=== PATIENT | male | born 2000 | race African-American/Black ===

== ENCOUNTER 2023-12-31 09:03 | Inpatient (IN) ==
--- NOTE | 2023-12-31 09:17 | Emergency Department Note ---
Impression & Plan Seizure-like activity, Syncope, COVID-19, Dehydration, Elevated CK, EVER (acute kidney injury) ED Provider Note NAME: KATALINA DOHERTY AGE: 23 SEX: M : 2000 ARRIVES VIA: Ambulance INFORMANT: Patient ED PROVIDER(S): Jose Hatch MD CHIEF COMPLAINT: Syncope, witness seizure-like activity. PLAN: Disposition: Admit MEDICAL DECISION MAKING: The patient is a pleasant 23-year-old gentleman, [employer] student who presents to the emergency department via EMS for evaluation of witnessed seizure-like episode where patient was noted to have lost consciousness in the [facility] parking lot falling hitting the right side of his face on the ground and had shaking which concerned bystanders for seizure-like activity. Upon EMS arrival the patient was awake and alert but confused and mildly somnolent. He denies any recent fevers, chills, GI or symptoms. He reported later that he did have mild nasal congestion for the pasto two days. 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 He otherwise denies taking medications regularly. He denies any alcohol consumption last night. He denies any marijuana use or drug use otherwise. He denies family history of sudden . On evaluation the patient is fatigued appearing but no acute distress, afebrile with heart rate in the 100s and blood pressure 130s/50s. He appears clinically dry. He appears mildly drowsy/somnolent but is spontaneously awake and alert. He answers questions appropriately. He has no focal logic deficits. He has mild contusion of the right periorbital region without edema or bony crepitus. EOMI. No nystamgus. PEARRL. EKG without overt acute ischemia. CXR negative for acute cardiopulmonary process per my personal preliminary review/interpretation. WBC 16K with mild left shift, H/H and platelets within normal limits. Chemistry with anion gap metabolic acidosis with anion gap of 27 and bicarbonate of 10 with creatinine 1.5 consistent with EVER. CPK was elevated at 1000. High- sensitivity troponin 8.8, within normal limits. TSH within normal limits. UA without evidence of infection. Urine drug screen was negative. Respiratory BioFire was positive for COVID-19 which upon further discussion with the patient he reports having mild sinus congestion over the past couple of days. Patient initially did express interest in outpatient follow-up and so blood work was repleted and the patient chemistry did show interval improvement with resolution of his anion gap and metabolic acidosis. Creatinine also improved to 1.17. However, the patient CPK continued to rise to 2100. The patient did report feeling improved however given his rising CPK in the setting of this presentation of syncope versus seizure in the setting of COVID-19 he does agree with plan for admission for further management. Case was discussed with ALISA Mckay PAC, and Dr. Hall [facility] hospitalist who will evaluate the patient for admission. Further management per admitting team. Triage Nursing notes reviewed and agree them. Prior/external medical records reviewed Vital Signs: reviewed Differential diagnosis: Vasovagal event, dehydration, infection, hypoglycemia, electrolyte abnormalities, cardiac sources, intracerebral event, pulmonary embolism, seizure, toxicologic, neurologic, as well as other pathologies. ER treatment provided: See below. Diagnostics interpreted by me: ECG: Sinus tachycardia, 105 bpm, no ectopy, no brugada, no overt ST elevation or depression, QTc 465, QRS 98. Cardiac Monitoring: An order for continuous cardiac monitoring was placed and demonstrated Sinus tachycardia, 105 bpm, no ectopy. Laboratory studies: See below Imaging studies: See below Consultation(s): Case was discussed with ALISA Mckay PAC, and Dr. Hall [facility] hospitalist who will evaluate the patient for admission. HPI: The patient is a pleasant 23-year-old gentleman, [employer] student who presents to the emergency department via EMS for evaluation of witnessed seizure-like episode where patient was noted to have lost consciousness in the [employer] parking lot falling hitting the right side of his face on the ground and had shaking which concerned bystanders for seizure-like activity. Upon EMS arrival the patient was awake and alert but confused and mildly somnolent. He denies any recent fevers, chills, GI or symptoms. He reported later that he did have mild nasal congestion for the pasto two days. 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 He otherwise denies taking medications regularly. He denies any alcohol consumption last night. He denies any marijuana use or drug use otherwise. He denies family history of sudden . ROS: See above HPI for pertinent positives & negatives. A total of 10 systems reviewed and were otherwise negative. VITALS:See Below PHYSICAL EXAMINATION: GENERAL: Awake, alert, fatigued-appearing, in no distress HENT: Normocephalic, Mild right periorbital contusion without edema. Oropharynx with dry mucous membranes and otherwise unremarkable. EYES: Normal conjunctiva. Sclera non-icteric. EOMI. No nystamgus. PEARRL. NECK: Supple. No nuchal rigidity. FROM. No JVD. RESPIRATORY: Clear to auscultation. CARDIAC: Regular rate, normal rhythm. Extremities warm and well perfused. Pulses equal. ABDOMEN: Soft, non-distended. No tenderness to palpation. No rebound or guarding. No masses. MUSCULOSKELETAL: Chest examination reveals no tenderness. The back is symmetrical on inspection without obvious abnormality. There is no CVA tenderness to palpation. No joint edema. LOWER EXTREMITIES: Calves are equal size bilaterally and non-tender. No edema. No discoloration. NEURO: No focal sensory or motor deficits noted. DTRs wnl. No clonus. 5/5 strength and SILT x 4 extremities. Cerebellar function intact including [id number], alternating palms, [id number]. SKIN: No rash or jaundice noted. Jose Hatch MD Past Med/Surg History Problem List (Updated 12/31/23 @ 21:27 by Jose Hatch MD) EVER (acute kidney injury) (Acute) Elevated CK (Acute) Dehydration (Acute) COVID-19 (Acute) Seizure-like activity (Acute) Syncope (Acute) Social History Smoking Status: Never smoker Hx Alcohol Use: No Hx Substance Use: No Preferred Language: Pashto Communication Ability: Effective Key Entry Operator Required: No Beliefs That Will Affect Care: None Current Living Situation Comment: Student at [employer], currently in apartment off campus Feels Safe at Home: Yes Allergies Allergies Allergy/AdvReac Type Severity Reaction Status Date / Time No Known Allergies Allergy Unverified 12/31/23 12:38 Home Meds Home Medications Medication Instructions Recorded Confirmed No Known Home Medications 12/31/23 12/31/23 Results & Data (ED) Vital Signs Vital Signs - 24 hr 12/31/23 09:08 12/31/23 09:15 12/31/23 09:16 Pulse Rate 102 H 74 101 H Pulse Rate [Right Brachial] Pulse Rhythm Regular Regular Pulse Rhythm [Right Brachial] Pulse Strength Normal Pulse Strength [Right Brachial] Respiratory Rate 20 18 Respiratory Effort / Characteristics Non-Labored Respiratory Depth Normal Respiratory Pattern Blood Pressure 131/53 L Blood Pressure [Right Arm] Blood Pressure Mean 79 Blood Pressure Mean [Right Arm] Blood Pressure Position Lying Blood Pressure Position [Right Arm] Pulse Oximetry 100 100 Oxygen Delivery Method Room Air Room Air Sepsis Recent Fever Within 48 Hours No Sepsis New/Unexplained Change in Mental Status No Sepsis Action Taken by Nursing No Action Required 12/31/23 09:46 12/31/23 09:46 12/31/23 11:55 Pulse Rate Pulse Rate [Right Brachial] 79 68 Pulse Rhythm Pulse Rhythm [Right Brachial] Regular Regular Pulse Strength Pulse Strength [Right Brachial] Normal Normal Respiratory Rate 18 16 Respiratory Effort / Characteristics Non-Labored Non-Labored Spontaneous Respiratory Depth Normal Normal Respiratory Pattern Regular Regular Blood Pressure Blood Pressure [Right Arm] 121/54 L 105/78 Blood Pressure Mean Blood Pressure Mean [Right Arm] 76 87 Blood Pressure Position Blood Pressure Position [Right Arm] Sitting Sitting Pulse Oximetry 100 99 Oxygen Delivery Method Room Air Room Air Room Air Sepsis Recent Fever Within 48 Hours Sepsis New/Unexplained Change in Mental Status Sepsis Action Taken by Nursing 12/31/23 13:05 Pulse Rate 62 Pulse Rate [Right Brachial] Pulse Rhythm Pulse Rhythm [Right Brachial] Pulse Strength Pulse Strength [Right Brachial] Respiratory Rate Respiratory Effort / Characteristics Respiratory Depth Respiratory Pattern Blood Pressure Blood Pressure [Right Arm] Blood Pressure Mean Blood Pressure Mean [Right Arm] Blood Pressure Position Blood Pressure Position [Right Arm] Pulse Oximetry Oxygen Delivery Method Sepsis Recent Fever Within 48 Hours Sepsis New/Unexplained Change in Mental Status Sepsis Action Taken by Nursing Laboratory Data Attestation: I reviewed the patient's lab results. 12/31/23 09:05 12/31/23 12:59 Lab Results 12/31/23 12/31/23 12/31/23 Range/Units 09:05 10:27 10:37 WBC 16.09 H (4.8-10.8) K/ul RBC 5.14 (4.70-6.10) M/uL Hgb 15.3 (14.0-18.0) g/dl Hct 48.6 (42.0-52.0) % MCV 94.6 (80.0-100.0) fL MCH 29.8 (25.0-34.0) pg MCHC 31.5 L (32.0-36.0) g/dL RDW Std Deviation 38.8 (36.4-46.3) fL RDW Coeff of Vinicius 11.1 L (11.5-14.5) % Plt Count 266 (130-400) K/uL MPV 10.1 (9.4-12.4) fL Immature Gran % (Auto) 2.8 % Neut % (Auto) 34.0 % Lymph % (Auto) 52.8 % Wilson % (Auto) 8.1 % Eos % (Auto) 1.7 % Baso % (Auto) 0.6 % Neut # (Auto) 5.47 (1.40-6.50) K/uL Lymph # (Auto) 8.50 H (1.20-3.40) K/uL Wilson # (Auto) 1.30 H (0.11-0.59) K/uL Eos # (Auto) 0.28 (0.00-0.50) K/uL Baso # (Auto) 0.09 (0.00-0.20) K/uL Immature Gran # (Auto) 0.45 H (0.01-0.20) K/uL PT 11.7 (9.0-12.0) Seconds INR 1.1 (0.9-1.1) Sodium 138 (136-145) mmol/L Potassium 3.4 L (3.5-5.1) mmol/L Chloride 101 (98-107) mmol/L Carbon Dioxide 10 L (21-32) mmol/L Anion Gap 27 H (3-11) BUN 20 (6-23) mg/dl Creatinine 1.50 H (0.6-1.4) mg/dl Est Cr Clr Drug Dosing 81.7 ml/min Est GFR ( Amer) 76.0 ml/min Est GFR (Non-Af Amer) 65.6 ml/min BUN/Creatinine Ratio 13.3 (10-20) Glucose 118 H (70-99(Fasting)) mg/dl Calcium 9.6 (8.6-10.3) mg/dl Magnesium 2.3 (1.7-2.4) mg/dl Total Bilirubin 0.6 (0.2-1.0) mg/dl AST 46 H (13-39) U/L ALT 30 (7-52) U/L Alkaline Phosphatase 128 H (34-104) U/L Total Creatine Kinase 1016 H (30-223) U/L Troponin I High Sens 8.8 (0-20) pg/ml Total Protein 8.3 (6.0-8.3) gm/dl Albumin 4.8 (3.4-5.0) gm/dl Globulin 3.5 (2.5-4.0) gm/dl Albumin/Globulin Ratio 1.4 (0.9-2) TSH 2.996 (0.300-4.500) uIu/ml Prolactin 37.80 ng/ml Urine Color Urine Appearance (Clear) Urine pH (4.5-7.5) Ur Specific Ralls (1.000-1.030) Urine Protein (Negative) Urine Glucose (UA) (Negative) Urine Ketones (Negative) Urine Blood (Negative) Urine Nitrite (Negative) Urine Bilirubin (Negative) Urine Urobilinogen (Negative) Ur Leukocyte Esterase (Negative) Urine WBC (Auto) (0-5) /hpf Urine RBC (Auto) (0-2) /hpf U Hyaline Cast (Auto) (0-2) /lpf U Epithel Cells (Auto) (0-2) /hpf Urine Bacteria (Auto) (None Seen) Uric Acid Crystals (None Prsent) Urine Opiates Screen (Neg) Ur Methadone, Qual (Neg) Urine Fentanyl Screen (Neg) Urine Barbiturates (Neg) Ur Phencyclidine (PCP) (Neg) U Amphetamin/Meth Scrn (Neg) MDMA (Ecstasy) Screen (Neg) U Benzodiazepines Scrn (Neg) Ur Cocaine Metabolite (Neg) U Marijuana (THC) Screen (Neg) Ethyl Alcohol mg/dL < 10.0 (<10.0) mg/dl Adenovirus (PCR) Not Detected (NotDetected) B. pertussis DNA (PCR) Not Detected (NotDetected) B.parapertussis DNA PCR Not Detected (NotDetected) C. pneumoniae DNA (PCR) Not Detected (NotDetected) Coronavirus OC43 (PCR) Not Detected (NotDetected) Coronavirus HKU1 (PCR) Not Detected (NotDetected) Coronavirus 229E (PCR) Not Detected (NotDetected) SARS-CoV-2 (PCR) DETECTED A (NotDetected) Coronavirus NL63 (PCR) Not Detected (NotDetected) Human Metapneumovir PCR Not Detected (NotDetected) Influenza Type A (PCR) Not Detected (NotDetected) Influenza Type B (PCR) Not Detected (NotDetected) M. pneumoniae (PCR) Not Detected (NotDetected) Parainfluenza 1 (PCR) Not Detected (NotDetected) Parainfluenza 2 (PCR) Not Detected (NotDetected) Parainfluenza 3 (PCR) Not Detected (NotDetected) Parainfluenza 4 (PCR) Not Detected (NotDetected) RSV (PCR) Not Detected (NotDetected) Entero/Rhino (PCR) Not Detected (NotDetected) 12/31/23 12/31/23 Range/Units 10:43 12:59 WBC (4.8-10.8) K/ul RBC (4.70-6.10) M/uL Hgb (14.0-18.0) g/dl Hct (42.0-52.0) % MCV (80.0-100.0) fL MCH (25.0-34.0) pg MCHC (32.0-36.0) g/dL RDW Std Deviation (36.4-46.3) fL RDW Coeff of Vinicius (11.5-14.5) % Plt Count (130-400) K/uL MPV (9.4-12.4) fL Immature Gran % (Auto) % Neut % (Auto) % Lymph % (Auto) % Wilson % (Auto) % Eos % (Auto) % Baso % (Auto) % Neut # (Auto) (1.40-6.50) K/uL Lymph # (Auto) (1.20-3.40) K/uL Wilson # (Auto) (0.11-0.59) K/uL Eos # (Auto) (0.00-0.50) K/uL Baso # (Auto) (0.00-0.20) K/uL Immature Gran # (Auto) (0.01-0.20) K/uL PT (9.0-12.0) Seconds INR (0.9-1.1) Sodium 137 (136-145) mmol/L Potassium 3.8 (3.5-5.1) mmol/L Chloride 105 (98-107) mmol/L Carbon Dioxide 26 (21-32) mmol/L Anion Gap 6 (3-11) BUN 16 (6-23) mg/dl Creatinine 1.17 D (0.6-1.4) mg/dl Est Cr Clr Drug Dosing 104.7 ml/min Est GFR ( Amer) 102.7 ml/min Est GFR (Non-Af Amer) 88.6 ml/min BUN/Creatinine Ratio 13.7 (10-20) Glucose 88 (70-99(Fasting)) mg/dl Calcium 8.8 (8.6-10.3) mg/dl Magnesium (1.7-2.4) mg/dl Total Bilirubin (0.2-1.0) mg/dl AST (13-39) U/L ALT (7-52) U/L Alkaline Phosphatase (34-104) U/L Total Creatine Kinase 2177 H (30-223) U/L Troponin I High Sens (0-20) pg/ml Total Protein (6.0-8.3) gm/dl Albumin (3.4-5.0) gm/dl Globulin (2.5-4.0) gm/dl Albumin/Globulin Ratio (0.9-2) TSH (0.300-4.500) uIu/ml Prolactin ng/ml Urine Color Yellow Urine Appearance Turbid A (Clear) Urine pH 5.5 (4.5-7.5) Ur Specific Ralls 1.019 (1.000-1.030) Urine Protein Negative (Negative) Urine Glucose (UA) Negative (Negative) Urine Ketones Negative (Negative) Urine Blood Negative (Negative) Urine Nitrite Negative (Negative) Urine Bilirubin Negative (Negative) Urine Urobilinogen Negative (Negative) Ur Leukocyte Esterase Negative (Negative) Urine WBC (Auto) 0-5 (0-5) /hpf Urine RBC (Auto) 0-2 (0-2) /hpf U Hyaline Cast (Auto) 0-2 (0-2) /lpf U Epithel Cells (Auto) 0-2 (0-2) /hpf Urine Bacteria (Auto) None Seen (None Seen) Uric Acid Crystals Present A (None Prsent) Urine Opiates Screen Neg (Neg) Ur Methadone, Qual Neg (Neg) Urine Fentanyl Screen Neg (Neg) Urine Barbiturates Neg (Neg) Ur Phencyclidine (PCP) Neg (Neg) U Amphetamin/Meth Scrn Neg (Neg) MDMA (Ecstasy) Screen Neg (Neg) U Benzodiazepines Scrn Neg (Neg) Ur Cocaine Metabolite Neg (Neg) U Marijuana (THC) Screen Neg (Neg) Ethyl Alcohol mg/dL (<10.0) mg/dl Adenovirus (PCR) (NotDetected) B. pertussis DNA (PCR) (NotDetected) B.parapertussis DNA PCR (NotDetected) C. pneumoniae DNA (PCR) (NotDetected) Coronavirus OC43 (PCR) (NotDetected) Coronavirus HKU1 (PCR) (NotDetected) Coronavirus 229E (PCR) (NotDetected) SARS-CoV-2 (PCR) (NotDetected) Coronavirus NL63 (PCR) (NotDetected) Human Metapneumovir PCR (NotDetected) Influenza Type A (PCR) (NotDetected) Influenza Type B (PCR) (NotDetected) M. pneumoniae (PCR) (NotDetected) Parainfluenza 1 (PCR) (NotDetected) Parainfluenza 2 (PCR) (NotDetected) Parainfluenza 3 (PCR) (NotDetected) Parainfluenza 4 (PCR) (NotDetected) RSV (PCR) (NotDetected) Entero/Rhino (PCR) (NotDetected) Administered Medications Lactated Ringer's (Lr) 1,000 mls @ 200 mls/hr IV .Q5H CLAUDIA Stop: 01/01/24 13:17 Last Admin: 12/31/23 15:06 Dose: 125 mls/hr Documented By: MIGUELITO Discontinued Medications Sodium Chloride (Nss) 2,000 mls @ 999 mls/hr IV .Q2H1M CLAUDIA Stop: 12/31/23 11:15 Last Infusion: 12/31/23 11:54 Dose: Infused Documented By: Admin: 12/31/23 10:00 Dose: 999 mls/hr Documented By: MIGUELITO Imaging Data Radiologist's Impression: Chest X-Ray 12/31/23 09:15 XR chest 1V portable HISTORY: 23 years-old Male syncope acute syncope COMPARISON: None TECHNIQUE: AP view of the chest FINDINGS: Cardiac silhouette is normal. Lungs are clear. No pneumothorax or pleural effusion. Bones appear grossly intact. IMPRESSION: No acute process. ACT 112: Negative or not required by law. The above report was generated using voice recognition software. It may contain grammatical, syntax or spelling errors. Electronically signed by: Polo Dowd M.D. 12/31/2023 9:[address] 12/31/23 10:13 CT head/brain wo con CLINICAL HISTORY: 23 years-old Male with syncope vs sz. Acute seizure-like activity. TECHNIQUE: Multiple axial CT images of the head were obtained without contrast. A dose lowering technique was utilized adhering to the principles of ALARA. CT DOSE: 547.75 mGy.cm COMPARISON: None. FINDINGS: No acute intracranial hemorrhage, midline shift, intracranial mass, hydrocephalus, territorial ischemia or abnormal extra-axial collection. The calvarium is intact. Minimal mucosal thickening of the paranasal sinuses. Mastoid air cells are clear. IMPRESSION: No acute intracranial abnormality or calvarial fracture. ACT 112: Negative or not required by law. The above report was generated using voice recognition software. It may contain grammatical, syntax or spelling errors. Electronically signed by: Polo Dowd M.D. 12/31/2023 11:15 AM Discharge Plan Visit Data Chief Complaint: Seizure Stated Complaint: SEIZURE ED Provider: Jose Hatch Discharge Problem: Seizure-like activity, Syncope, COVID-19, Dehydration, Elevated CK, EVER (acute kidney injury) Patient Disposition: Admitted As Inpatient Discharge Instructions Interventions: ED Discharge Assessment Last Done: 09/07/24 17:15 Discharge Problem: Syncope Qualifiers: Syncope type: unspecified Qualified Code(s): R55 - Syncope and collapse
--- NOTE | 2023-12-31 09:32 | XRay Report ---
XR chest 1V portable HISTORY: 23 years-old Male syncope acute syncope COMPARISON: None TECHNIQUE: AP view of the chest FINDINGS: Cardiac silhouette is normal. Lungs are clear. No pneumothorax or pleural effusion. Bones appear makayla sly intact. IMPRESSION: No acute process. ACT 112: Negative or not required by law. The above report was generated using voice recognition software. It may contain grammatical, syntax o r spelling errors. Electronically signed by: Polo Dowd M.D. 12/31/2023 9:31 AM
[2023-12-31 09:36] LABS: Hematocrit (blood only) 48.6 % (42.0-52.0); Hemoglobin 15.3 g/dl (14.0-18.0); Mean Corpuscular Hemoglobin 29.8 pg (25.0-34.0); Mean Corpuscular Hgb Conc 31.5 g/dL (32.0-36.0); Mean Corpuscular Volume 94.6 fL (80.0-100.0); Mean Platelet Volume 10.1 fL (9.4-12.4); Platelet Count 266 K/uL (130-400); RDW Coefficient of Variation 11.1 % (11.5-14.5); RDW Standard Deviation 38.8 fL (36.4-46.3); Red Blood Count 5.14 M/uL (4.70-6.10); White Blood Count 16.09 K/ul (4.8-10.8)
[2023-12-31 09:45] LABS: Albumin Globulin Ratio 1.4 (0.9-2); Albumin Level 4.8 gm/dl (3.4-5.0); BUN Creatinine Ratio 13.3 (10-20); Bilirubin,Total 0.6 mg/dl (0.2-1.0); Calcium 9.6 mg/dl (8.6-10.3); Creatinine Clr Calc Pharmacy 81.7 ml/min; Est GFR (Non-African American) 65.6 ml/min; Globulin 3.5 gm/dl (2.5-4.0); Magnesium 2.3 mg/dl (1.7-2.4); Potassium 3.4 mmol/L (3.5-5.1); Total Protein 8.3 gm/dl (6.0-8.3)
[2023-12-31 09:52] LABS: Troponin I High Sensitivity 8.8 pg/ml (0-20)
[2023-12-31 09:53] LABS: Basophils # (auto) 0.09 K/uL (0.00-0.20); Basophils % (auto) 0.6 %; Eosinophils # (auto) 0.28 K/uL (0.00-0.50); Eosinophils % (auto) 1.7 %; Immature Granulocytes # (auto) 0.45 K/uL (0.01-0.20); Immature Granulocytes % (auto) 2.8 %; Lymphocytes % (auto) 52.8 %; Monocytes % (auto) 8.1 %; Neutrophils # (auto) 5.47 K/uL (1.40-6.50)
[2023-12-31 09:54] LABS: INR 1.1 (0.9-1.1); Prothrombin Time 11.7 Seconds (9.0-12.0)
[2023-12-31] MEDS: SODIUM CHLORIDE 0.9% 2,000 ML IV SCH (10:00)
[2023-12-31 10:01] LABS: Thyroid Stimulating Hormone 2.996 uIu/ml (0.300-4.500)
--- NOTE | 2023-12-31 11:17 | CT Scan Report ---
CT head/brain wo con CLINICAL HISTORY: 23 years-old Male with syncope vs sz. Acute seizure-like activity. TECHNIQUE: Multiple axial CT images of the head were obtained without contrast. A dose lowering tech nique was utilized adhering to the principles of ALARA. CT DOSE: 547.75 mGy.cm COMPARISON: None. FINDINGS: No acute intracranial hemorrhage, midline shift, intracranial mass, hydrocephalus, territorial ischem ia or abnormal extra-axial collection. The calvarium is intact. Minimal mucosal thickening of the paranasal sinuses. Mastoid air cells are clear. IMPRESSION: No acute intracranial abnormality or calvarial fracture. ACT 112: Negative or not required by law. The above report was generated using voice recognition software. It may contain grammatical, syntax o r spelling errors. Electronically signed by: Polo Dowd M.D. 12/31/2023 11:15 AM
[2023-12-31 11:28] LABS: Adenovirus PCR Not Detected (NotDetected); Bordetella parapertussis PCR Not Detected (NotDetected); Bordetella pertussis PCR Not Detected (NotDetected); Chlamydia pneumoniae PCR Not Detected (NotDetected); Coronavirus 229E PCR Not Detected (NotDetected); Coronavirus CoV-2 (COVID19)PCR DETECTED (NotDetected); Coronavirus HKU1 PCR Not Detected (NotDetected); Coronavirus NL63 PCR Not Detected (NotDetected); Coronavirus OC43PCR Not Detected (NotDetected); Human Metapneumovirus PCR Not Detected (NotDetected); Influenza A PCR Not Detected (NotDetected); Influenza B PCR Not Detected (NotDetected); Mycoplasma pneumoniae PCR Not Detected (NotDetected); Parainfluenza Virus 1 PCR Not Detected (NotDetected); Parainfluenza Virus 2 PCR Not Detected (NotDetected); Parainfluenza Virus 3 PCR Not Detected (NotDetected); Parainfluenza Virus 4 PCR Not Detected (NotDetected); Respiratory Syncytial VirusPCR Not Detected (NotDetected); Rhinovirus/Enterovirus PCR Not Detected (NotDetected)
[2023-12-31 11:34] LABS: Appearance Urine Turbid (Clear); Bacteria Urine Automated None Seen (None Seen); Bilirubin Urine Negative (Negative); Blood Urine Negative (Negative); Cast Urine Automated 0-2 /lpf (0-2); Color Urine Yellow; Epithelial Cell Urine Auto 0-2 /hpf (0-2); Glucose Urine UA Negative (Negative); Ketones Urine Negative (Negative); Leukocyte Esterase Urine Negative (Negative); Nitrite Urine Negative (Negative); Protein Urine Negative (Negative); RBC Urine Automated 0-2 /hpf (0-2); Specific Gravity Urine 1.019 (1.000-1.030); Urobilinogen Urine Negative (Negative); WBC Urine Automated 0-5 /hpf (0-5); pH Urine 5.5 (4.5-7.5)
[2023-12-31 11:42] LABS: Uric Acid Crystals Urine Present (None Prsent)
[2023-12-31 11:55] LABS: Amphetamines+Metham, Urine Neg (Neg); Barbiturates, Urine Neg (Neg); Benzodiazepine, Urine Neg (Neg); Cocaine, Urine Neg (Neg); Fentanyl, Urine Neg (Neg); MDMA (Ecstacy), Urine Neg (Neg); Marijuana, Urine Neg (Neg); Methadone, Urine Neg (Neg); Opiate, Urine Neg (Neg); Phencyclidine, Urine Neg (Neg)
[2023-12-31 13:38] LABS: BUN Creatinine Ratio 13.7 (10-20); Calcium 8.8 mg/dl (8.6-10.3); Creatinine Clr Calc Pharmacy 104.7 ml/min; Est GFR (African American) 102.7 ml/min; Est GFR (Non-African American) 88.6 ml/min; Potassium 3.8 mmol/L (3.5-5.1)
[2023-12-31] MEDS ORDERED: ACETAMINOPHEN 325 MG TAB PO PRN (14:44)
--- NOTE | 2023-12-31 14:44 | History & Physical Report ---
Date of Service December 31, 2023 Assessment & Plan (1) Syncope: Plan: Admit to med telemetry and pulse oximetry Currently stable, nontoxic-appearing, and without recurrent seizure-like activity since prior to ED arrival Presented to ED after experiencing a syncopal episode and possible seizure- like activity after hitting his head off the ground early this morning while making his way up to the stadium for the football game Patient's syncopal episode was most likely due to significant dehydration and acute COVID-19 infection, although, patient reported that he was feeling "foggy" with tingling in his extremities prior to his syncopal event CT of the head and brain without contrast and chest x-ray were negative for acute findings Nonfocal neurologic exam Status post 2 L normal saline in the ED, will continue IV hydration with LR at 125 mL/h x 2 bags as the patient still appears dehydrated on exam with increased CK level compared to arrival Will continue to monitor on telemetry and obtain TTE for further evaluation to rule out cardiac etiology to his syncopal episode Bilateral SCDs for DVT prophylaxis Regular diet AM CBC, CMP, mag (2) Seizure-like activity: Plan: Continue seizure precautions and telemetry monitoring Will follow TTE ordered at the time of admission Continue hydration Will consult neurology for further assessment and treatment recommendations (3) COVID-19: Plan: Positive on testing in the ED Started to develop congestion approximately 3 days ago Stable on room air, chest x-ray is clean Supportive care with incentive spirometry, parent Tylenol, IV hydration (4) Dehydration: Plan: Patient still appears dehydrated on exam with dry mucous membranes Likely became dehydrated over the past 24 hours with working late until 0200 this morning, being COVID-positive, and not eating/drinking when he woke this morning as he was running late to attend the [employer] Continue LR at 125 mL/h x 2 bags for now as the patient will also be eating/drinking moving forward (5) Elevated CK: Plan: Initial CK on arrival was 1016, elevated to 217 2:07 liters normal saline in the ED Likely due to dehydration possible seizure-like activity this morning Renal function and liver function are within normal limits Will continue IV hydration moving forward and repeat CK level this evening Plan The patient was discussed with Dr. Hall at the time of the admission History of Present Illness Chief Complaint: Seizure-like activity Primary Care Provider: NO PCP Dru is a 23-year-old male with past medical history significant for possible previous seizure [employer]ojciech year of high school (approximately 5 years ago) who presented to [facility] ED on 12/31/2023 via EMS after experiencing a syncopal episode with possible seizure-like activity after hitting his head earlier this morning. 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 While walking to the game the patient reportedly was witnessed passing out and hitting his head off the ground. Bystanders reported some mild clonus activity lost consciousness. Patient was noted to be tachycardic on arrival at 101 but otherwise stable. Labs were significant for leukocytosis of 16 with neutrophil predominance of 8, creatinine of 1.5, potassium of 3.4, anion gap of 27 with bicarb 10, glucose of 118, total CK of 1016 with alk phos of 128 and AST of 46, turbid urine without other abnormalities negative drug toxicology screen in alcohol level, with full respiratory BioFire positive for COVID-19. The patient was given an initial 2 L normal saline on arrival with repeat labs showing resolution of his EVER, anion gap metabolic acidosis, but ongoing elevation of total CK to 2177. We are asked to admit the patient for observation to continue IV hydration and further monitoring for possible seizure-like activity. Patient was lying in bed in no acute distress at the time of exam. 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 Confirms that he worked until approximately 0200 this a.m. and thinks he went to bed around 0300. States he woke up at 7 and was concerned that he overslept causing him to scramble to get up to the stadium. While riding an [employer] he states that he started to feel "shaky" and realized that he continue to drop his phone and felt foggy. Shortly after getting out of the [employer] he realized that he left his phone in the car and then states that the last he remembers is asking the [employer] line haul truck driver if they had any water and then woke up surrounded by bystanders. States that he currently feels fatigued but is otherwise without complaints. Denies recent fever or chills but has been congested over the past 3 to 4 days. No recent chest pain, cough, shortness of breath, abdominal pain, nausea/vomiting, dysuria/hematuria, diarrhea, lower extremity swelling. When asked, he denies having a workout or practice on 12/30/2023. Again confirms that he does not use alcohol or drugs. When asked about workout supplements, he states that he regularly uses whey protein intakes 1 tab of a creatine supplement approximately 3 times a week with the last dose being on 12/29/2023. Confirms that approximately 5 years ago he had a seizure in bed at home. States that he was admitted overnight and had a number of test performed but was never started on any medications or followed up with a neurologist. Please refer to Dr. Hall's attestation for any changes to the treatment plan Allergies Allergy/AdvReac Type Severity Reaction Status Date / Time No Known Allergies Allergy Unverified 12/31/23 12:38 Home Medications Medication Instructions Recorded Confirmed Type No Known Home Medications 12/31/23 12/31/23 History Past Med/Surg History Problem List (Updated 12/31/23 @ 21:27 by Jose Hatch MD) EVER (acute kidney injury) (Acute) Elevated CK (Acute) Dehydration (Acute) COVID-19 (Acute) Seizure-like activity (Acute) Syncope (Acute) Social History Smoking Status: Never smoker Hx Alcohol Use: No Hx Substance Use: No Preferred Language: Urdu Communication Ability: Effective Database Technician Required: No Beliefs That Will Affect Care: None Current Living Situation Comment: Student at [employer], currently in apartment off campus Feels Safe at Home: Yes Physical Exam Physical Exam: Physical Exam: General: In no acute distress, stated age, fatigued but nontoxic-appearing HEENT: Normocephalic, patient with bruising on the lateral aspect of the left eye orbit without acute trauma/crepitus on palpation no scleral icterus, pupils around round, symmetrical, and reactive to light, dry mucus membranes, trachea midline, no thyromegaly Chest/Pulm: No respiratory distress, symmetrical chest expansion, clear breath sounds throughout Cardiac: RRR, no murmurs noted Abdomen: Negative for ascites and bruising, normoactive bowel sounds, soft, non-tender to palpation throughout Musculoskeletal: Symmetrical and without signs of acute trauma, upper and lower extremities with full ROM, no atrophy, spasticity, or flaccidity Extremities: Radial, dorsalis pedis, and posterior tibial pulses are intact and symmetrical, no edema noted in the BL LE's Skin: Warm, dry, no rashes , lesions, or scars noted Neuro: Alert and oriented to person, place, month, year, and president, no focal defects, CN II-XII tested and intact, finger to nose test negative, no tremors noted Psych: No acute distress, calm and cooperative during the exam Results & Data Results & Data Vital Signs (Past 12 Hours) Vital Signs Pulse Pulse Resp BP BP Pulse Ox O2 Del Method 12/31/23 13:05 62 12/31/23 11:55 68 16 105/78 99 Room Air 12/31/23 09:46 79 18 121/54 L 100 Room Air 12/31/23 09:46 Room Air 12/31/23 09:16 101 H 18 131/53 L 100 Room Air 12/31/23 09:15 74 20 100 Room Air 12/31/23 09:08 102 H Laboratory Results Abnormal lab results 12/31/23 12/31/23 12/31/23 Range/Units 09:05 10:27 10:43 WBC 16.09 H (4.8-10.8) K/ul MCHC 31.5 L (32.0-36.0) g/dL RDW Coeff of Vinicius 11.1 L (11.5-14.5) % Lymph # (Auto) 8.50 H (1.20-3.40) K/uL [place] # (Auto) 1.30 H (0.11-0.59) K/uL Immature Gran # (Auto) 0.45 H (0.01-0.20) K/uL Potassium 3.4 L (3.5-5.1) mmol/L Carbon Dioxide 10 L (21-32) mmol/L Anion Gap 27 H (3-11) Creatinine 1.50 H (0.6-1.4) mg/dl Glucose 118 H (70-99(Fasting)) mg/dl AST 46 H (13-39) U/L Alkaline Phosphatase 128 H (34-104) U/L Total Creatine Kinase 1016 H (30-223) U/L Urine Appearance Turbid A (Clear) Uric Acid Crystals Present A (None Prsent) SARS-CoV-2 (PCR) DETECTED A (NotDetected) 12/31/23 Range/Units 12:59 WBC (4.8-10.8) K/ul MCHC (32.0-36.0) g/dL RDW Coeff of Vinicius (11.5-14.5) % Lymph # (Auto) (1.20-3.40) K/uL [place] # (Auto) (0.11-0.59) K/uL Immature Gran # (Auto) (0.01-0.20) K/uL Potassium (3.5-5.1) mmol/L Carbon Dioxide (21-32) mmol/L Anion Gap (3-11) Creatinine (0.6-1.4) mg/dl Glucose (70-99(Fasting)) mg/dl AST (13-39) U/L Alkaline Phosphatase (34-104) U/L Total Creatine Kinase 2177 H (30-223) U/L Urine Appearance (Clear) Uric Acid Crystals (None Prsent) SARS-CoV-2 (PCR) (NotDetected) Diagnostic Findings Chest X-Ray 12/31/23 09:15 XR chest 1V portable HISTORY: 23 years-old Male syncope acute syncope COMPARISON: None TECHNIQUE: AP view of the chest FINDINGS: Cardiac silhouette is normal. Lungs are clear. No pneumothorax or pleural effusion. Bones appear grossly intact. IMPRESSION: No acute process. ACT 112: Negative or not required by law. The above report was generated using voice recognition software. It may contain grammatical, syntax or spelling errors. Electronically signed by: Polo Dowd M.D. 12/31/2023 9:[address] 12/31/23 10:13 CT head/brain wo con CLINICAL HISTORY: 23 years-old Male with syncope vs sz. Acute seizure-like activity. TECHNIQUE: Multiple axial CT images of the head were obtained without contrast. A dose lowering technique was utilized adhering to the principles of ALARA. CT DOSE: 547.75 mGy.cm COMPARISON: None. FINDINGS: No acute intracranial hemorrhage, midline shift, intracranial mass, hydrocephalus, territorial ischemia or abnormal extra-axial collection. The calvarium is intact. Minimal mucosal thickening of the paranasal sinuses. Mastoid air cells are clear. IMPRESSION: No acute intracranial abnormality or calvarial fracture. ACT 112: Negative or not required by law. The above report was generated using voice recognition software. It may contain grammatical, syntax or spelling errors. Electronically signed by: Polo Dowd M.D. 12/31/2023 11:15 AM Code Status & VTE Plan Code Status Full code Supervising Physician Co-Signing Physician Notes I personally saw and examined the patient. I verified all hansen points and agree with Odilon Jeffries PA-C with the following exceptions and/or additions: 23 year old male presents to the ER after an unresponsive episode. Twitching in his hand and dropping his phone prior to episode but no presyncope. Seizure well described by his mother at bedside 5 years ago. O/E HS RRR, no murmurs, Chest CTAB, Abdo SNT, no facial droop, pupils equal, no extr emity weakness A/P Suspected seizure - history more concerning for seizure than syncope especially with history of similar episode. Provoked by lack of sleep and dehydration. EEG ordered. Brain MRI seizure protocol. Prolactin added. Consult neurology as given second episode may recommend anti-epileptics although episode was provoked and very infrequent. Patient does not have a driving license. Rhabdomyolysis - increase IV LR to 200ml/hr, repeat CK with AM labs, patient notably on creatine supplements with significant muscle mass. PG Care Time/CCT Total # of Minutes Spent Total Time Spent with Patient: Total time spent is greater than 50% in coordination of care (as documented) at patient's floor/unit and/or counseling patient: [place] [address] INT INP/OBS CARE 3/75MIN Patient Type New Medical Decision Making High Complexity Diagnoses Syncope R55 Seizure-like activity R56.9 COVID-19 U07.1 Dehydration E86.0 Elevated CK R74.8
[2023-12-31] MEDS: LACTATED RINGER'S 1,000 ML IV SCH (15:06)
--- NOTE | 2023-12-31 21:50 | Electrocardiogram Report ---
Test Reason : Blood Pressure : */* mmHG Vent. Rate : 105 BPM Atrial Rate : 105 BPM P-R Int : 186 ms QRS Dur : 98 ms QT Int : 352 ms P-R-T Axes : 80 89 10 degrees QTcB Int : 465 ms Sinus tachycardia T wave abnormality, consider inferior ischemia T wave abnormality, consider anterior ischemia ST elevation, consider early repolarization Abnormal ECG No previous ECGs available Confirmed by Oscar Worthy ([id number]) on 12/31/2023 9:50:21 PM Referred By: REFERRED SELF Confirmed By: Oscar Worthy
--- NOTE | 2024-01-01 06:45 | Hospitalist Progress Note ---
Date of Service January 01, 2024 Assessment & Plan (1) Seizure-like activity: (2) Syncope: (3) Elevated CK: (4) EVER (acute kidney injury): (5) COVID-19: (6) Dehydration: Plan Pt is a 23 yo male with a past medical history of prior syncopal/seizure episode 5 years ago who presents to the hospital on 12/30 for syncopal episode/seizure like activity. Syncope vs seizure - presented to ED after experiencing a syncopal episode and possible seizure- like activity after hitting his head off the ground early this morning while [place] way [place] the stadium [place] - had felt tingling in extremities and foggy prior to episode, but no bowel or bladder incontinence - no further episodes since being admitted, had a similar episode about [address] of the head and brain without contrast and chest x-ray were negative for acute findings - differential is syncope vs seizure due to dehydration in setting of acute COVID infection - prolactin 37, TSH wnl - TTE; pending - brain MRI; pending - neurology consulted; brain MRI, EEG, no seizure meds at this time, OP f/u, no more driving on discharge for now COVID-19 Positive on testing in the ED Started to develop congestion approximately 3 days ago Stable on room air, chest x-ray is clean Supportive care with incentive spirometry, Dehydration - appeared clinically dry on admission Likely became dehydrated over the past 24 hours with working late until 0200 this morning, being COVID-positive, and not eating/drinking when he woke this morning as he was running late to attend the [employer] Continue LR at 125 mL/h x 2 bags until complete today as the patient will also be eating/drinking moving forward Elevated CK Initial CK on arrival was 1016, elevated to 3212, now 2750 so downtrending Likely due to dehydration +/- seizure activity Renal function initially elevated 1.5 but immediately came down to 1.17 Admission and Anticipated Discharge Date Admission Date: December 31, 2023 Supervising Physician Co-Signing Physician Notes I personally examined the patient and verified hansen points of history and exam, discussed case, and agree with decision making and plan documented by Dr. Pinzon. Patient is a 23-year-old male presenting for syncopal event with concern of possible seizure activity. Patient has reported prior seizure 5 yrs ago. Patient is positive for COVID-19, he denies any symptoms. Patient reports he stayed up late working last night, slept maybe 4 hours, woke up and went to 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 Patient states that while he was in his Uber, he was feeling twitches in his body, the driver starting gate was asking him multiple times if he was okay, patient left his phone in the car. When walking to the stadium, patient states he was feeling extremely thirsty, was looking for water, had syncopal event with reported seizure-like activity. Neurology consulted. Awaiting results of brain MRI, head CT without abnormality, neurology recommending EEG and outpatient follow-up. Subjective Pt is a 23 yo male with a past medical history of prior syncopal/seizure episode 5 years ago who presents to the hospital on 12/30 for syncopal episode/seizure like activity. Pt states that he had been working Tuesday night until around 2 am, then went home to sleep for a bit and got up to go to the [employer] game yesterday. Was not hydrating well. Has had some congestion/rhinorrhea the last 3 days also but no associated chest pain, SOB, nausea, vomiting. He notes he did not hydrate very well at work and then when walking to the game he collapsed with no symptoms prior to collapse and had some twitching in his hands. He noted a prior hx of this about 5 years ago seemingly out of the blue. Today he is feeling well other than congestion. Review of Systems Review of Systems: Per HPI. Physical Exam Physical Exam: General:Alert and oriented, no acute distress, HEENT: Normocephalic, moist oral mucosa, some nasal congestion noted Cardio: Regular rate and rhythm, no murmur appreciated on exam Resp:Lungs clear to auscultation b/l, no wheezes or rhonchi, GI: Soft and nontender, nondistended, bowel sounds active Skin: Warm, pink, dry, Results & Data Results & Data Vital Signs (Past 12 Hours) Vital Signs Temp Pulse Pulse Resp BP Pulse Ox Pulse Ox 12/31/23 23:00 63 12/31/23 21:57 36.8 C 62 16 106/54 L 99 12/31/23 21:01 37.2 C 60 16 121/55 L 97 12/31/23 20:26 99 12/31/23 19:00 60 16 134/49 L 100 O2 Del Method O2 Del Method 12/31/23 23:00 12/31/23 21:57 Room Air 12/31/23 21:01 Room Air 12/31/23 20:26 Room Air 12/31/23 19:00 Room Air Resident Activity Tracking Resident Involvement: Resident Care Provided Care Provided: Adult Hospital Medicine (2) Syncope Syncope type: unspecified Qualified Code(s): R55 - Syncope and collapse
[2024-01-01 07:21] LABS: Basophils # (auto) 0.02 K/uL (0.00-0.20); Basophils % (auto) 0.3 %; Eosinophils # (auto) 0.11 K/uL (0.00-0.50); Eosinophils % (auto) 1.7 %; Hematocrit (blood only) 41.1 % (42.0-52.0); Hemoglobin 13.2 g/dl (14.0-18.0); Immature Granulocytes # (auto) 0.04 K/uL (0.01-0.20); Immature Granulocytes % (auto) 0.6 %; Lymphocytes # (auto) 1.84 K/uL (1.20-3.40); Lymphocytes % (auto) 29.1 %; Mean Corpuscular Hemoglobin 28.8 pg (25.0-34.0); Mean Corpuscular Hgb Conc 32.1 g/dL (32.0-36.0); Mean Corpuscular Volume 89.5 fL (80.0-100.0); Monocytes # (auto) 0.61 K/uL (0.11-0.59); Monocytes % (auto) 9.6 %; Neutrophils # (auto) 3.71 K/uL (1.40-6.50); Neutrophils % (auto) 58.7 %; Platelet Count 190 K/uL (130-400); RDW Coefficient of Variation 11.5 % (11.5-14.5); Red Blood Count 4.59 M/uL (4.70-6.10); White Blood Count 6.33 K/ul (4.8-10.8)
[2024-01-01 08:57] LABS: Albumin Globulin Ratio 1.5 (0.9-2); Albumin Level 3.5 gm/dl (3.4-5.0); BUN Creatinine Ratio 10.7 (10-20); Bilirubin,Total 0.5 mg/dl (0.2-1.0); Calcium 8.4 mg/dl (8.6-10.3); Creatinine Clr Calc Pharmacy 101.4 ml/min; Est GFR (African American) 98.6 ml/min; Est GFR (Non-African American) 85.1 ml/min; Globulin 2.4 gm/dl (2.5-4.0); Potassium 3.8 mmol/L (3.5-5.1); Total Protein 5.9 gm/dl (6.0-8.3)
--- NOTE | 2024-01-01 09:19 | Neurology Consultation ---
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 He has an intact neurological examination and had an unremarkable CT of the head yesterday. His CKs are modestly elevated, he has an elevated prolactin as well. He may have had some myoclonic jerking prior to the episode. The patient does endorse a history of suspected nocturnal seizure that occurred as a teenager. He remembers having an EEG at that time but was not diagnosed with a seizure disorder and was not prescribed an antiseizure medication. Although this recent episode seems to have been provoked, an underlying seizure disorder cannot be completely excluded in light of his reported history of possible nocturnal seizure that occurred several years ago. It sounds like he may have had some myoclonic jerking prior to this recent event. Juvenile myoclonic epilepsy could be considered. Agree with brain MRI, seizure protocol, as ordered. I also agree with the EEG although this study could be done as an outpatient if he is stable for discharge today. I would not start any antiseizure medication at this time. For the time being, no driving. Patient should follow-up in neurology clinic in 2 to 3 weeks, may be seen by myself or an HAMILTON at that time. Please call with any questions. History of Present Illness Reason for Consultation: seizure like episode Requesting Physician: Mervin Attending Physician: Jasmyne Maldonado DO History of Present Illness The patient is a 23-year-old male [employer] student who had an episode of collapse and associated seizure-like activity that occurred while in the parking lot of [facility] yesterday. 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 He recalls perceiving twitching throughout his body prior to the episode. He remembers walking around the parking lot, looking for water. The next thing he recalls was awakening in the ambulance. He was confused and mildly somnolent upon arrival in the emergency department. He does admit to some upper respiratory symptoms over the past few days, primarily sore throat and nasal congestion. He denies any recent significant alcohol consumption or other substance use. He does believe he has been dehydrated recently. He did have some mild bruising above the right eye. Otherwise, no significant injuries. No tongue bite, no incontinence. He does indicate that he had a nocturnal seizure-like episode a few years ago as a teenager. He is from [place] and recalls having an EEG at that time. The study was apparently unremarkable. He has not been diagnosed with epilepsy or seizure disorder and has not been treated with an antiseizure medication previously. This morning, he denies headache or significant pain. He denies any change in vision, hearing, weakness, or problems with coordination. A CT of the head completed yesterday was unremarkable, no hemorrhage or acute process. I did independently review these images. He did have an elevated prolactin level, and elevated CK. Allergies Allergy/AdvReac Type Severity Reaction Status Date / Time No Known Allergies Allergy Unverified 12/31/23 12:38 Home Medications Medication Instructions Recorded Confirmed Type No Known Home Medications 12/31/23 12/31/23 History Patient History Social History Smoking Status: Never smoker Hx Alcohol Use: No Hx Substance Use: No Preferred Language: Malaysian Communication Ability: Effective Newspaper Photographer Required: No Beliefs That Will Affect Care: None Current Living Situation Comment: Student at [employer], currently in apartment off campus Feels Safe at Home: Yes Review of Systems Constitutional: + fatigue; no fever and no chills Eyes: no blind spots and no diplopia Ear, Nose, Mouth, Throat: no hearing loss Respiratory: no cough and no dyspnea Cardiovascular: no chest pain and no palpitations Gastrointestinal: no nausea and no vomiting Genitourinary: no dysuria or no urinary incontinence Musculoskeletal: + myalgia and + body aches; no back pain and no neck pain Integumentary: no rash and no lesions Neurologic: as per Subjective / HPI; no localized weakness, no loss of sensation, no lack of coordination, no tremor(s), no abnormal movements, no headache(s), no abnormal speech and no confusion Psychiatric: no depression and no anxiety Hematologic / Lymphatic: no easy bleeding and no easy bruising Exam (Neuro) Constitutional: well developed and well nourished; no acute distress Eyes: normal visual de souza by confrontation, PERRL and EOM intact bilaterally; no nystagmus Neurologic: Oriented to:: Person, Place and Time Memory: Short Term Intact and Remote Intact Attention: Span Intact and Concentration Intact Speech Fluency: negative Dysarthria or Dysfluency Speech Aphasia: negative Aphasia Fund of Knowledge: Current Events, Past History and Vocabulary Cranial Nerves: Normal II, III, IV, , V, VII, VIII, IX, X, XI and XII Motor Strength: Normal Lower Extremities and Normal Upper Extremities Motor Tone: Normal Lower Extremities and Normal Upper Extremities Muscle Bulk/Involuntary Movements: No Involuntary Movements; negative Muscle Atrophy Sensation: Light Touch Intact, Pain/Temperature Intact and Proprioception Intact Coordination: Normal; negative Dysdiadochokinesia, Finger-Nose Abnormal or Heel-Douglas Abnormal Deep Tendon Reflexes: Rt Triceps: 2+, Lt Triceps: 2+, Rt Biceps: 2+, Lt Biceps: 2+, Rt Brachioradialis: 2+, Lt Brachioradialis: 2+, Rt Patellar: 2+, Lt Patellar: 2+, Rt Ankle: 2+ and Lt Ankle: 2+ Results & Data Vital Signs (Past 12 Hours) Vital Signs Temp Pulse Pulse Pulse Resp BP Pulse Ox 01/01/24 08:48 36.6 C 65 18 113/70 99 01/01/24 07:49 83 12/31/23 23:00 63 12/31/23 21:57 36.8 C 62 16 106/54 L 99 12/31/23 21:01 37.2 C 60 16 121/55 L 97 O2 Del Method 01/01/24 08:48 Room Air 01/01/24 07:49 12/31/23 23:00 12/31/23 21:57 Room Air 12/31/23 21:01 Room Air Laboratory Results WBC 6.33, hemoglobin 13.2, hematocrit 41.1, MCV 89.5, platelet count 190, sodium 137, potassium 3.8, BUN 13, creatinine 1.21, glucose 97, calcium 8.4, AST 63, ALT 28, total CK 3212, TSH 2.996, prolactin 37.80, urine toxicology screen negative, ethyl alcohol level less than 10.0, SARS-CoV-2 PCR positive Diagnostic Findings An electrocardiogram revealed sinus tachycardia. CT of the head is as described in the HPI, I independently reviewed these images. Chest x-ray no acute process. Coding Level of Care Code 28614 INT INP/OBS CARE 3/75MIN Diagnoses Seizure-like activity R56.9 COVID-19 U07.1 Time Spent (min) 90 Comment Total time includes patient contact, chart review, counseling, note preparation
[2024-01-01] MEDS: GADOBUTROL 30ML VIAL IV ONE (15:17)
--- NOTE | 2024-01-01 16:34 | Magnetic Resonance Report ---
MR brain seizure wo/w con HISTORY: 23 years-old Male Seizure acute seizure-like activity COMPARISON: Head CT 12/31/2023 TECHNIQUE: Multiplanar multisequence MRI of the brain was obtained with and without IV contrast. FINDINGS: No restricted diffusion. No acute intracranial hemorrhage, midline shift, abnormal extra-axial collec tion, hydrocephalus or intra-axial mass. Cerebral venous sinuses and major arterial flow voids appear patent. Wwbq-ck-hqjonloj mucosal thickening of the paranasal sinuses. Unremarkable soft tissues. Nor mal volume and signal characteristics of the brain parenchyma. No acute seizure focus, taylor matter he terotopia, cortical dysplasia or mesial temporal sclerosis. No abnormal enhancement. IMPRESSION: Normal MRI of the brain. ACT 112: Negative or not required by law. The above report was generated using voice recognition software. It may contain grammatical, syntax o r spelling errors. Electronically signed by: Polo Dowd M.D. 01/01/2024 4:33 PM
--- NOTE | 2024-01-01 16:35 | XCELERA ---
[id number]
[2024-01-01] MEDS: MELATONIN 3 MG TAB PO PRN (23:58)
--- NOTE | 2024-01-02 06:50 | Hospitalist Progress Note ---
Date of Service January 02, 2024 Assessment & Plan (1) Seizure-like activity: (2) Syncope: (3) Elevated CK: (4) EVER (acute kidney injury): (5) COVID-19: (6) Dehydration: Plan Pt is a 23 yo male with a past medical history of prior syncopal/seizure episode 5 years ago who presents to the hospital on 12/30 for syncopal episode/seizure like activity. Syncope vs seizure - presented to ED after experiencing a syncopal episode and possible seizure- like activity after hitting his head off the ground early this morning while [place] his way [place] to the stadium for the football [place] - had felt tingling in extremities and foggy prior to episode, but no bowel or bladder incontinence - no further episodes since being admitted, had a similar episode about [address] of the head and brain without contrast and chest x-ray were negative for acute findings - differential is syncope vs seizure due to dehydration in setting of acute COVID infection - prolactin 37, TSH wnl - TTE; pending - brain MRI; pending - neurology consulted; brain MRI, EEG, no seizure meds at this time, OP f/u, no more driving on discharge for now COVID-19 Positive on testing in the ED Started to develop congestion approximately 3 days ago Stable on room air, chest x-ray is clean Supportive care with incentive spirometry, Dehydration - appeared clinically dry on admission Likely became dehydrated over the past 24 hours with working late until 0200 this morning, being COVID-positive, and not eating/drinking when he woke this morning as he was running late to attend the [employer] game Continue LR at 125 mL/h x 2 bags until complete today as the patient will also be eating/drinking moving forward Elevated CK Initial CK on arrival was 1016, elevated to 3212, now 2750 so downtrending Likely due to dehydration +/- seizure activity Renal function initially elevated 1.5 but immediately came down to 1.17 Admission and Anticipated Discharge Date Admission Date: December 31, 2023 Review of Systems Review of Systems: Per HPI. Physical Exam Physical Exam: General:Alert and oriented, no acute distress, HEENT: Normocephalic, moist oral mucosa, some nasal congestion noted Cardio: Regular rate and rhythm, no murmur appreciated on exam Resp:Lungs clear to auscultation b/l, no wheezes or rhonchi, GI: Soft and nontender, nondistended, bowel sounds active Skin: Warm, pink, dry, Results & Data Results & Data Vital Signs (Past 12 Hours) Vital Signs Temp Pulse Pulse Resp BP Pulse Ox O2 Del Method 01/02/24 03:29 36.3 C L 70 16 117/57 L 99 Room Air 01/01/24 23:37 36.7 C 63 18 129/70 98 Room Air 01/01/24 23:00 61 01/01/24 20:00 36.6 C 71 18 109/65 97 Room Air (2) Syncope Syncope type: unspecified Qualified Code(s): R55 - Syncope and collapse
[2024-01-02 07:04] LABS: Basophils # (auto) 0.02 K/uL (0.00-0.20); Basophils % (auto) 0.3 %; Eosinophils # (auto) 0.16 K/uL (0.00-0.50); Eosinophils % (auto) 2.2 %; Hematocrit (blood only) 45.7 % (42.0-52.0); Hemoglobin 14.5 g/dl (14.0-18.0); Immature Granulocytes # (auto) 0.04 K/uL (0.01-0.20); Immature Granulocytes % (auto) 0.6 %; Lymphocytes # (auto) 2.43 K/uL (1.20-3.40); Lymphocytes % (auto) 33.8 %; Mean Corpuscular Hemoglobin 28.5 pg (25.0-34.0); Mean Corpuscular Hgb Conc 31.7 g/dL (32.0-36.0); Mean Platelet Volume 9.8 fL (9.4-12.4); Monocytes % (auto) 8.3 %; Neutrophils # (auto) 3.95 K/uL (1.40-6.50); Neutrophils % (auto) 54.8 %; Platelet Count 193 K/uL (130-400); RDW Coefficient of Variation 11.2 % (11.5-14.5); RDW Standard Deviation 37.2 fL (36.4-46.3); Red Blood Count 5.08 M/uL (4.70-6.10)
[2024-01-02 07:18] LABS: Albumin Globulin Ratio 1.4 (0.9-2); BUN Creatinine Ratio 7.2 (10-20); Bilirubin,Total 0.6 mg/dl (0.2-1.0); Calcium 9.3 mg/dl (8.6-10.3); Creatinine Clr Calc Pharmacy 88.9 ml/min; Est GFR (African American) 84.1 ml/min; Est GFR (Non-African American) 72.6 ml/min; Globulin 2.9 gm/dl (2.5-4.0); Total Protein 6.9 gm/dl (6.0-8.3)
[2024-01-02 10:29] LABS: C Reactive Protein 0.57 mg/dl (0-0.5)
[2024-01-02 11:21] LABS: Procalcitonin < 0.02 ng/ml (0-0.5)
[2024-01-02 11:46] LABS: Lyme Screen Rflx Confirmation Negative (Negative)
--- NOTE | 2024-01-02 11:49 | Discharge Summary ---
Date of Service January 02, 2024 Admission HPI Per Admitting Provider Dru is a 23-year-old male with past medical history significant for possible previous seizure [employer]ojciech year of high school (approximately 5 years ago) who presented to [facility] ED on 12/31/2023 via EMS after experiencing a syncopal episode with possible seizure-like activity after hitting his head earlier this morning. 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 While walking to the game the patient reportedly was witnessed passing out and hitting his head off the ground. Bystanders reported some mild clonus activity lost consciousness. Patient was noted to be tachycardic on arrival at 101 but otherwise stable. Labs were significant for leukocytosis of 16 with neutrophil predominance of 8, creatinine of 1.5, potassium of 3.4, anion gap of 27 with bicarb 10, glucose of 118, total CK of 1016 with alk phos of 128 and AST of 46, turbid urine without other abnormalities negative drug toxicology screen in alcohol level, with full respiratory BioFire positive for COVID-19. The patient was given an initial 2 L normal saline on arrival with repeat labs showing resolution of his EVER, anion gap metabolic acidosis, but ongoing elevation of total CK to 2177. We are asked to admit the patient for observation to continue IV hydration and further monitoring for possible seizure-like activity. Patient was lying in bed in no acute distress at the time of exam. 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 Confirms that he worked until approximately 0200 this a.m. and thinks he went to bed around 0300. States he woke up at 7 and was concerned that he overslept causing him to scramble to get up to the stadium. While riding an [employer] he states that he started to feel "shaky" and realized that he continue to drop his phone and felt foggy. Shortly after getting out of the [employer] he realized that he left his phone in the car and then states that the last he remembers is asking the [employer] driver recruiter if they had any water and then woke up surrounded by bystanders. States that he currently feels fatigued but is otherwise without complaints. Denies recent fever or chills but has been congested over the past 3 to 4 days. No recent chest pain, cough, shortness of breath, abdominal pain, nausea/vomiting, dysuria/hematuria, diarrhea, lower extremity swelling. When asked, he denies having a workout or practice on 12/30/2023. Again confirms that he does not use alcohol or drugs. When asked about workout supplements, he states that he regularly uses whey protein intakes 1 tab of a creatine supplement approximately 3 times a week with the last dose being on 12/29/2023. Confirms that approximately 5 years ago he had a seizure in bed at home. States that he was admitted overnight and had a number of test performed but was never started on any medications or followed up with a neurologist. Please refer to Dr. Hall's attestation for any changes to the treatment plan Admission Exam Per Admitting Provider General: In no acute distress, stated age, fatigued but nontoxic-appearing HEENT: Normocephalic, patient with bruising on the lateral aspect of the left eye orbit without acute trauma/crepitus on palpation no scleral icterus, pupils around round, symmetrical, and reactive to light, dry mucus membranes, trachea midline, no thyromegaly Chest/Pulm: No respiratory distress, symmetrical chest expansion, clear breath sounds throughout Cardiac: RRR, no murmurs noted Abdomen: Negative for ascites and bruising, normoactive bowel sounds, soft, non- tender to palpation throughout Musculoskeletal: Symmetrical and without signs of acute trauma, upper and lower extremities with full ROM, no atrophy, spasticity, or flaccidity Extremities: Radial, dorsalis pedis, and posterior tibial pulses are intact and symmetrical, no edema noted in the BL LE's Skin: Warm, dry, no rashes , lesions, or scars noted Neuro: Alert and oriented to person, place, month, year, and president, no focal defects, CN II-XII tested and intact, finger to nose test negative, no tremors noted Psych: No acute distress, calm and cooperative during the exam Principal Diagnosis Seizure-like episode Discharge Exam General:Alert and oriented, no acute distress, HEENT: Normocephalic, moist oral mucosa, some nasal congestion noted Cardio: Regular rate and rhythm, no murmur appreciated on exam Resp:Lungs clear to auscultation b/l, no wheezes or rhonchi, GI: Soft and nontender, nondistended, bowel sounds active Skin: Warm, pink, dry, Discharge Data Allergies Allergy/AdvReac Type Severity Reaction Status Date / Time No Known Allergies Allergy Unverified 12/31/23 12:38 Consultations 12/31/23 14:26 ED Decision to Admit Stat 12/31/23 15:09 Consult Neurology Routine Ordered Studies 12/31/23 10:13 CT head/brain wo con Stat 01/01/24 22:50 MR brain seizure wo/w con Routine Hospital Course (1) Seizure-like activity: (2) Syncope: (3) Elevated CK: (4) EVER (acute kidney injury): (5) COVID-19: (6) Dehydration: Plan Pt is a 23 yo male with a past medical history of prior syncopal/seizure episode 5 years ago who presents to the hospital on 12/30 for syncopal episode/seizure like activity. Syncope vs seizure - presented to ED after experiencing a syncopal episode and possible seizure- like activity after hitting his head off the ground early this morning while making his way up to the stadium for the football game - had felt tingling in extremities and foggy prior to episode, but no bowel or bladder incontinence - no further episodes since being admitted, had a similar episode about [address] of the head and brain without contrast and chest x-ray were negative for acute findings - differential is syncope vs seizure due to dehydration in setting of acute COVID infection - prolactin 37, TSH wnl - TTE; wnl, EF 55-60%, brain MRI; wnl, - neurology consulted; no seizure meds at this time, OP f/u, no more driving on discharge for now COVID-19 Positive on testing in the ED Started to develop congestion approximately 3 days prior to hospitalization - has not had chest pain or SOB, VSS Dehydration - appeared clinically dry on admission Likely became dehydrated over the past 24 hours with working late until 0200 this morning, being COVID-positive, and not eating/drinking when he woke this morning as he was running late to attend the [employer] - given IVF for repletion, now po Elevated CK Initial CK on arrival was 1016, elevated to 3212, now 2750 so downtrending Likely due to dehydration +/- seizure activity Renal function initially elevated 1.5 but immediately came down to 1.17 Total Time Total Time Spent Total Time Spent (In Minutes): As per attending attestation. Discharge Plan Discharge Items Patient Disposition: Home - Self-Care Reason For Visit: SYNCOPY, SEIZURE-LIKE ACTIVITY, ELEVATED CK, DEHYD Discharge Diagnosis: Seizure-like episode Activity: Resume your previous activity Non-emergency contact: Primary Care Provider and Neurologist Call non-emergency contact if: you have any medication questions and your symptoms worsen Follow-up/Referrals: PCP,NO [Primary Care Provider] - Diet: Regular Addtl Attending Provider Instructions: You were admitted to the hospital for syncope/seizure-like episode. We cannot say definitely if you had a seizure or not since it was not witnessed by a healthcare professional and no further incidences happened while you were in the hospital, but it is possible. For this reason, you should plan to follow up with neurology in 2-4 weeks in their office. They will call you in the coming days to set this appointment up. You should also plan to follow up with a primary care physician, which can be at [facility] or at the [facility] office in [address] in the building in front of the hospital. You were noted to have a slow heart rhythm in the hospital, which I discussed with our cardiology folks here and they determined that nothing needed to be done about it and given you are young and fit, they think it is okay and should not cause you any issues. They did not recommend any follow-up with them. In the meantime, you should plan to keep well hydrated, at least 60-80 ounces of noncaffeinated fluids daily (caffeinated fluids do not count towards the goal since they make you have to pee more). If doing activity, plan to increase this and add electrolytes to some of your drinks or drink some fluids with electrolytes in them like Gatorade. Also, plan to get at least 6-7 hours of sleep nightly, especially if you plan on being very active the next day. Pending Studies at Discharge: No Stand-Alone Forms: [facility] [employer], Work/School Release Medications and DC Order Prescriptions: No Action No Known Home Medications Discharge Orders: Discharge Order (Routine); Ordered 01/02/24 Ordered By: Sarah Beth Boyd/Other Patient Handouts: Creatine Kinase (Blood), COVID19 Home Disinfect, COVID-19 Home Care, Dehydration, Infection Preventing Spread, Understanding Bradycardia, Heart Block 1st Degree, ED Bradycardia Admission Data Admit Date/Time: 12/31/23 14:44 Attending Provider: Partha Sales Admit Provider: Crow Hall Primary Care Provider: PCP,NO Other Providers: Crow Hall; Arnie Guillory Other Interventions: Discharge Summary Assessment (RN) Last Done: 01/02/24 13:52 Supervising Physician Co-Signing Physician Notes I personally examined the patient and verified all hansen points of history and exam, discussed case, and agree with decision making with Dr Pinzon feeling better and would like to get out of the hospital. Vitals noted, in general he is awake and alert pleasant no distress. HEENT normocephalic atraumatic mucous membranes moist. Breathing unlabored no accessory muscle use good effort. Skin without rashes pallor or icterus. Neuro shows no focal deficits. Monitor strips initially were concerning for a possible Mobitz 2but on further review there is clearly QRS lengthening before a dropped beat making it clearly a [place]/Mobitz 1 seizure-like activityagree with neurologyif seizure, was almost certainly provoked. No clear need for ongoing antiepileptic medications at this time. No driving until reevaluation by neurology. Safe/stable for home. mobitz 1on further review was a benign rhythm. Safe/stable for home. Resident Activity Tracking Resident Involvement: Resident Care Provided Care Provided: Adult Hospital Medicine
--- NOTE | 2024-01-02 12:58 | Electroencephalogram ---
EEG Procedure Note Date of Service January 02, 2024 Start / End Times Start Time: 730 End Time: 750 Referring Physician arcenio montano History seizure Home Medication List Medication Instructions Recorded Confirmed Type No Known Home Medications 12/31/23 12/31/23 History Inpatient Medication List Melatonin (Melatonin 3 Mg Tab) 3 mg PO HS PRN PRN Reason: Sleep Stop: 01/31/24 23:20 Last Admin: 01/01/24 23:58 Dose: 3 mg Documented By: ALESSIO Discontinued Medications Gadobutrol (Gadobutrol 30ml Vial) 8.2 ml IV ONCE ONE Stop: 01/01/24 15:17 Last Admin: 01/01/24 15:17 Dose: 8.2 ml Documented By: YAS Sodium Chloride (Nss) 2,000 mls @ 999 mls/hr IV .Q2H1M CLAUDIA Stop: 12/31/23 11:15 Last Infusion: 12/31/23 11:54 Dose: Infused Documented By: Admin: 12/31/23 10:00 Dose: 999 mls/hr Documented By: MIGUELITO Lactated Ringer's (Lr) 1,000 mls @ 200 mls/hr IV .Q5H CLAUDIA Stop: 01/01/24 13:17 Last Infusion: 01/01/24 16:18 Dose: Infused Documented By: Admin: 01/01/24 10:58 Dose: 200 mls/hr Documented By: Infusion: 01/01/24 10:58 Dose: Infused Documented By: Admin: 01/01/24 04:50 Dose: 200 mls/hr Documented By: Infusion: 01/01/24 04:29 Dose: Infused Documented By: Admin: 12/31/23 23:29 Dose: 200 mls/hr Documented By: Infusion: 12/31/23 23:29 Dose: Infused Documented By: Admin: 12/31/23 15:06 Dose: 125 mls/hr Documented By: MIGUELITO Description This is a 21 electrode EEG with a single channel dedicated to limited EKG. The electrodes were placed in accordance with the International 10-20 system. Interpretation This is a 21 electrode EEG with a single channel dedicated to limited EKG. The electrodes were placed in accordance with the International 10-20 system. There is a posterior dominant rhythm of 8 to 9 Hz which is symmetrically distributed and attenuates with eye opening. There is a normal anterior to posterior organization. Photic stimulation: unremarkable Hyperventilation performed: ___ unremarkable; _x_ not performed. There is no focal slowing. No epileptiform abnormalities. Sleep stage: _x_ not achieved, ___drowsy state, ___ Stage II, ___ REM stage achieved. Interpretation Normal-appearing awake EEG. A normal EEG does not completely exclude a diagnosis of epilepsy. [facility] EEG Procedure Codes Indication for Procedure (1) Seizure-like activity: Neurology Neurology: 80993 EEG include record awake & drowsy
--- NOTE | 2024-01-02 13:08 | Electrocardiogram Report ---
Test Reason : Blood Pressure : */* mmHG Vent. Rate : 51 BPM Atrial Rate : 51 BPM P-R Int : 200 ms QRS Dur : 90 ms QT Int : 426 ms P-R-T Axes : 87 91 32 degrees QTcB Int : 392 ms Sinus bradycardia Rightward axis ST elevation, consider early repolarization, pericarditis, or injury Nonspecific ST and T wave abnormality Abnormal ECG When compared with ECG of 31-Dec-2023 09:11, Vent. rate has decreased by [address] elevation now present in Anterior leads Nonspecific T wave abnormality no longer evident in Anterior leads QT has shortened Confirmed by Killian Casillas ([id number]) on 01/02/2024 1:08:13 PM Referred By: REFERRED SELF Confirmed By: Killian Casillas
--- NOTE | 2024-01-02 17:15 | Billing Data ---
Date of Service January 02, 2024 Coding Level of Care Code 21255 IN/OBS DISCH 30 MIN/LESS
[2024-01-05 05:48] LABS: Babesia microti DNA Not Detected (Not Detected)
== END 2024-01-02 13:53 | disposition home or self-care (01) | DRG 100 ==
LOC: ED 09:03 → SUATTDRO 14:44 → EDINP 14:44 → 2N 17:15

== ENCOUNTER 2025-03-05 22:52 | Observation (INO) ==
--- NOTE | 2025-03-05 23:11 | Emergency Department Note ---
Impression & Plan Seizure, EVER (acute kidney injury), Metabolic acidosis ED Provider Note CHIEF COMPLAINT: Seizure HISTORY OF PRESENTING ILLNESS: The patient is a pleasant, 24-year-old male who arrives to the emergency department via EMS for evaluation of a witnessed seizure. The patient reports he was playing football, when bystanders noticed that he began to act strange, then began to have seizure-like activity, and collapsed to the ground. Bystanders states the seizure lasted approximately 30 to 40 seconds. Patient does report a seizure history of 1 episode last fall, and he was not placed on any seizure medication. Patient states left side facial pain with abrasion noted under left eye. Patient denies eye pain, visual loss, neck pain, chest pain, or sob. Patient appears slightly confused, however, is able to answer all questions. REVIEW OF SYSTEMS: See HPI for pertinent positives and pertinent negatives. ALLERGIES: See below MEDICATIONS: See below PAST MEDICAL HISTORY: See below PHYSICAL EXAM: VITALS: Vitals are noted on the nurse's note and reviewed by myself. Slight hypotension, tachycardia. GENERAL: 24-year-old male, in no acute distress, nondiaphoretic, well-developed well-nourished. SKIN: Abrasion noted under the left eye, with mild edema. HEAD: Normocephalic. EARS: External auditory canals clear, tympanic membranes pearly taylor without erythema or effusion bilaterally. No hemotympanum. EYES: Pupils equal round and reactive to light and accommodation. Conjunctivae without injection, sclerae without icterus. Extraocular movements intact. No nystagmus. MOUTH: Mucous membranes moist. No tonsillar hypertrophy noted. Pharynx without erythema or exudate. Uvula midline. Airway patent. Tongue does not deviate. NECK: Supple without nuchal rigidity. Cervical spine is nontender. No JVD. HEART: Tachycardia with regular rhythm without murmurs gallops or rubs. LUNGS: Clear to auscultation bilaterally without wheezes, rales or rhonchi. No retractions or accessory muscle use. ABDOMEN: Positive bowel sounds x 4. Soft, nontender, without masses or organomegaly. Benítez sign negative. No guarding or rebound tenderness. MUSCULOSKELETAL: No muscle atrophy, erythema, or edema noted. Normal gait. Strength 5/5 throughout. NEURO: Patient was alert and oriented to person place and time. No focal neurological deficits. DIFFERENTIAL DIAGNOSIS: Infection, hypoglycemia, electrolyte abnormalities, overdose, toxicologic, cardiac sources, intracerebral event, neurologic, trauma, as well as other pathologies. ED COURSE AND MEDICAL DECISION MAKING: HISTORY FROM INDEPENDENT HISTORIAN: EMS MEDICATIONS GIVEN: 2 L NSS bolus, 1 g IV Keppra, 1 g IV acetaminophen MONITOR: Continuous jig box operator: Order was placed for continuous jig box operator. Patient was placed on the jig box operator and continuous pulse ox. Patient was noted to be in normal sinus rhythm at an initial rate of 113 bpm per my interpretation. EKG: EKG was interpreted by myself as NSR 99bpm with no ST elevation or depression, no previous for comparison. INTERPRETATION OF LABS: I interpreted the labs with full lab results as below in the lab section of this note. Pertinent lab results discussed in the MDM section below. INTERPRETATION OF IMAGING: Imaging studies were interpreted by myself and read by radiology as per the imaging section of this note. MDM SUMMARY: The patient is a pleasant, 24-year-old male who arrives to the emergency department for evaluation of the above-stated complaint. Seizure protocol implemented. Saline lock was established, lab work was obtained. Lab work shows leukocytosis 18.45, with no anemia. CMP shows elevated anion gap 29, CO2 9, creatinine 1.81, transaminitis present. Total CK11 40, troponin 16.9. Findings consistent with EVER, and metabolic acidosis. EKG interpreted as above. Chest x-ray imaging per my interpretation shows no acute cardiopulmonary process. CT imaging of the head, face, and cervical spine were obtained which per my interpretation shows no ICH, fracture, subluxation. No facial bone fracture noted. Patient was provided IV fluids, and loaded with a gram of IV Keppra. Patient received 1 g IV acetaminophen for pain control. Patient will require admission for abnormal lab values, as well as seizure activity. Neurology consultation will be obtained during patient's admission. The patient was admitted to the [place] hospitalist group. Dr. Damon, agreed to evaluate and accept the patient for admission. Please refer to his documentation for further patient workup and care. DIAGNOSIS: Seizure, EVER, metabolic acidosis The chart was completed utilizing [employer] voice recognition software. Grammatical errors, random word insertions, pronoun errors, and incomplete sentences are an occasional consequence of this system due to software limitations, ambient noise, and hardware issues. Any formal questions or concerns about the content, text, or information contained within the body of this dictation should be directly addressed to the provider for clarification. Past Med/Surg History Problem List (Updated 03/06/25 @ 04:14 by YG Pineda) Metabolic acidosis (Acute) EVER (acute kidney injury) (Acute) Seizure (Acute) Social History Smoking Status: Never smoker Preferred Language: Bermudian Feels Safe at Home: Yes Allergies Allergies Allergy/AdvReac Type Severity Reaction Status Date / Time No Known Allergies Allergy Verified 03/06/25 00:00 Home Meds Home Medications Medication Instructions Recorded Confirmed No Known Home Medications 03/06/25 03/06/25 Results & Data (ED) Vital Signs Vital Signs - 24 hr 03/05/25 23:00 03/05/25 23:00 03/05/25 23:11 Temperature 36.4 C 36.6 C Temperature Source Oral Oral Pulse Rate 113 H Pulse Rate [Right Finger] 103 H Pulse Rhythm [Right Finger] Regular Pulse Strength [Right Finger] Normal Respiratory Rate 22 20 Respiratory Effort / Characteristics Non-Labored Spontaneous Respiratory Depth Normal Respiratory Pattern Regular Blood Pressure 93/56 L Blood Pressure [Right Arm] 93/56 L Blood Pressure Mean 68 Blood Pressure Mean [Right Arm] 68 Pulse Oximetry 96 96 97 Oxygen Delivery Method Room Air Room Air Room Air Sepsis Recent Fever Within 48 Hours No Sepsis New/Unexplained Change in Mental Status N/A Sepsis Action Taken by Nursing Physician Notified 03/05/25 23:15 03/06/25 00:00 03/06/25 01:00 Temperature Temperature Source Pulse Rate 106 H Pulse Rate [Right Finger] 89 78 Pulse Rhythm [Right Finger] Regular Regular Pulse Strength [Right Finger] Normal Normal Respiratory Rate 20 17 Respiratory Effort / Characteristics Non-Labored Spontaneous Non-Labored Spontaneous Respiratory Depth Normal Normal Respiratory Pattern Regular Regular Blood Pressure Blood Pressure [Right Arm] 121/52 L 104/61 Blood Pressure Mean Blood Pressure Mean [Right Arm] 75 75 Pulse Oximetry 97 97 Oxygen Delivery Method Room Air Room Air Sepsis Recent Fever Within 48 Hours Sepsis New/Unexplained Change in Mental Status Sepsis Action Taken by Nursing 03/06/25 02:00 03/06/25 03:00 03/06/25 03:17 Temperature Temperature Source Pulse Rate 65 Pulse Rate [Right Finger] 67 72 Pulse Rhythm [Right Finger] Regular Regular Pulse Strength [Right Finger] Normal Normal Respiratory Rate 17 18 Respiratory Effort / Characteristics Non-Labored Spontaneous Non-Labored Spontaneous Respiratory Depth Normal Normal Respiratory Pattern Regular Regular Blood Pressure Blood Pressure [Right Arm] 122/64 110/58 L Blood Pressure Mean Blood Pressure Mean [Right Arm] 83 75 Pulse Oximetry 97 98 Oxygen Delivery Method Room Air Room Air Sepsis Recent Fever Within 48 Hours Sepsis New/Unexplained Change in Mental Status Sepsis Action Taken by [facility] Medications Current Medication List: was personally reviewed by me Laboratory Data Attestation: I reviewed the patient's lab results. 03/05/25 23:05 03/05/25 23:05 Lab Results 03/05/25 03/05/25 03/06/25 Range/Units 23:05 23:10 00:49 WBC 18.45 H (4.8-10.8) K/ul RBC 5.55 (4.70-6.10) M/uL Hgb 16.2 (14.0-18.0) g/dL POC Hgb 18.4 H (14.0-18.0) g/dl Hct 52.2 H (42.0-52.0) % POC Hct 54 H (42-52) % MCV 94.1 (80.0-100.0) fL MCH 29.2 (25.0-34.0) pg MCHC 31.0 L (32.0-36.0) g/dL RDW Std Deviation 37.9 (36.4-46.3) fL RDW Coeff of Vinicius 11.0 L (11.5-14.5) % Plt Count 285 (130-400) K/uL MPV 10.0 (9.4-12.4) fL Immature Gran % (Auto) 5.4 % Neut % (Auto) 55.2 % Lymph % (Auto) 31.9 % Appling % (Auto) 6.0 % Eos % (Auto) 1.0 % Baso % (Auto) 0.5 % Neut # (Auto) 10.20 H (1.40-6.50) K/uL Lymph # (Auto) 5.88 H (1.20-3.40) K/uL Appling # (Auto) 1.10 H (0.11-0.59) K/uL Eos # (Auto) 0.18 (0.00-0.50) K/uL Baso # (Auto) 0.09 (0.00-0.20) K/uL Immature Gran # (Auto) 1.00 H (0.01-0.20) K/uL RBC Morphology Unremarkable VBG pH (7.36-7.41) VBG pCO2 (38-50) mmHg VBG pO2 mmHg VBG HCO3 mmol/L VBG O2 Saturation % VBG Base Excess mEq/L POC Sodium 137 (135-144) mmol/L Sodium 135 L (136-145) mmol/L POC Potassium 4.0 (3.3-5.0) mmol/L Potassium 3.9 (3.5-5.1) mmol/L POC Chloride 104 (101-112) mmol/L Chloride 97 L (98-107) mmol/L Carbon Dioxide 9 L* (21-32) mmol/L POC Total CO2 10 L (24-31) mmol/L Anion Gap 29 H (3-11) POC Anion Gap 28.0 H (16-25) mmol/L POC BUN 17 (7-18) mg/dl BUN 17 (6-23) mg/dl Creatinine 1.81 H (0.6-1.4) mg/dl POC Creatinine 1.9 H (0.6-1.3) mg/dl Est Cr Clr Drug Dosing 71.2 ml/min eGFR 53.55 BUN/Creatinine Ratio 9.4 L (10-20) Glucose 147 H (70-99(Fasting)) mg/dl POC Glucose (other) 141 H (70-99) mg/dl Lactate (0.4-2.0) mmol/L Calcium 10.3 (8.6-10.3) mg/dl POC Ioniz Calcium Dipak 1.23 (1.12-1.32) mmol/l Total Bilirubin 0.5 (0.2-1.0) mg/dl AST 78 H (13-39) U/L ALT 91 H (7-52) U/L Alkaline Phosphatase 143 H (34-104) U/L Total Creatine Kinase 1140 H (30-223) U/L Troponin I High Sens 16.9 (0-20) pg/ml B-Natriuretic Peptide (0-100) pg/ml Total Protein 9.2 H (6.0-8.3) gm/dl Albumin 4.9 (3.4-5.0) gm/dl Globulin 4.3 H (2.5-4.0) gm/dl Albumin/Globulin Ratio 1.1 (0.9-2) Procalcitonin (0-0.5) ng/ml Urine Color Yellow Urine Appearance Clear (Clear) Urine pH 5.0 (4.5-7.5) Ur Specific Stanley 1.013 (1.000-1.030) Urine Protein 1+ H (Negative) Urine Glucose (UA) Negative (Negative) Urine Ketones Negative (Negative) Urine Blood 2+ H (Negative) Urine Nitrite Negative (Negative) Urine Bilirubin Negative (Negative) Urine Urobilinogen Negative (Negative) Ur Leukocyte Esterase Negative (Negative) Urine WBC (Auto) 0-5 (0-5) /hpf Urine RBC (Auto) 0-2 (0-2) /hpf U Hyaline Cast (Auto) 11-20 H (0-2) /lpf U Epithel Cells (Auto) 0-2 (0-2) /hpf Urine Bacteria (Auto) None Seen (None Seen) Urine Mucus Present A (None Prsent) Urine Comment Urine Opiates Screen Neg (Neg) Ur Methadone, Qual Neg (Neg) Urine Fentanyl Screen Neg (Neg) Urine Barbiturates Neg (Neg) Ur Phencyclidine (PCP) Neg (Neg) U Amphetamin/Meth Scrn Neg (Neg) MDMA (Ecstasy) Screen Neg (Neg) U Benzodiazepines Scrn Neg (Neg) Ur Cocaine Metabolite Neg (Neg) U Marijuana (THC) Screen Neg (Neg) Ethyl Alcohol mg/dL < 10.0 (<10.0) mg/dl 03/06/25 03/06/25 Range/Units 02:27 03:14 WBC (4.8-10.8) K/ul RBC (4.70-6.10) M/uL Hgb (14.0-18.0) g/dL POC Hgb (14.0-18.0) g/dl Hct (42.0-52.0) % POC Hct (42-52) % MCV (80.0-100.0) fL MCH (25.0-34.0) pg MCHC (32.0-36.0) g/dL RDW Std Deviation (36.4-46.3) fL RDW Coeff of Vinicius (11.5-14.5) % Plt Count (130-400) K/uL MPV (9.4-12.4) fL Immature Gran % (Auto) % Neut % (Auto) % Lymph % (Auto) % Appling % (Auto) % Eos % (Auto) % Baso % (Auto) % Neut # (Auto) (1.40-6.50) K/uL Lymph # (Auto) (1.20-3.40) K/uL Appling # (Auto) (0.11-0.59) K/uL Eos # (Auto) (0.00-0.50) K/uL Baso # (Auto) (0.00-0.20) K/uL Immature Gran # (Auto) (0.01-0.20) K/uL RBC Morphology VBG pH 7.32 L (7.36-7.41) VBG pCO2 42 (38-50) mmHg VBG pO2 49 mmHg VBG HCO3 22 mmol/L VBG O2 Saturation 76.6 % VBG Base Excess -4.3 mEq/L POC Sodium (135-144) mmol/L Sodium (136-145) mmol/L POC Potassium (3.3-5.0) mmol/L Potassium (3.5-5.1) mmol/L POC Chloride (101-112) mmol/L Chloride (98-107) mmol/L Carbon Dioxide (21-32) mmol/L POC Total CO2 (24-31) mmol/L Anion Gap (3-11) POC Anion Gap (16-25) mmol/L POC BUN (7-18) mg/dl BUN (6-23) mg/dl Creatinine (0.6-1.4) mg/dl POC Creatinine (0.6-1.3) mg/dl Est Cr Clr Drug Dosing ml/min eGFR BUN/Creatinine Ratio (10-20) Glucose (70-99(Fasting)) mg/dl POC Glucose (other) (70-99) mg/dl Lactate 1.2 (0.4-2.0) mmol/L Calcium (8.6-10.3) mg/dl POC Ioniz Calcium Dipak (1.12-1.32) mmol/l Total Bilirubin (0.2-1.0) mg/dl AST (13-39) U/L ALT (7-52) U/L Alkaline Phosphatase (34-104) U/L Total Creatine Kinase (30-223) U/L Troponin I High Sens (0-20) pg/ml B-Natriuretic Peptide 22 (0-100) pg/ml Total Protein (6.0-8.3) gm/dl Albumin (3.4-5.0) gm/dl Globulin (2.5-4.0) gm/dl Albumin/Globulin Ratio (0.9-2) Procalcitonin 0.07 (0-0.5) ng/ml Urine Color Urine Appearance (Clear) Urine pH (4.5-7.5) Ur Specific Stanley (1.000-1.030) Urine Protein (Negative) Urine Glucose (UA) (Negative) Urine Ketones (Negative) Urine Blood (Negative) Urine Nitrite (Negative) Urine Bilirubin (Negative) Urine Urobilinogen (Negative) Ur Leukocyte Esterase (Negative) Urine WBC (Auto) (0-5) /hpf Urine RBC (Auto) (0-2) /hpf U Hyaline Cast (Auto) (0-2) /lpf U Epithel Cells (Auto) (0-2) /hpf Urine Bacteria (Auto) (None Seen) Urine Mucus (None Prsent) Urine Comment Urine Opiates Screen (Neg) Ur Methadone, Qual (Neg) Urine Fentanyl Screen (Neg) Urine Barbiturates (Neg) Ur Phencyclidine (PCP) (Neg) U Amphetamin/Meth Scrn (Neg) MDMA (Ecstasy) Screen (Neg) U Benzodiazepines Scrn (Neg) Ur Cocaine Metabolite (Neg) U Marijuana (THC) Screen (Neg) Ethyl Alcohol mg/dL (<10.0) mg/dl Administered Medications Sodium Bicarbonate 150 meq/ (Sterile Water) 1,150 mls @ 100 mls/hr IV .[id number] CLAUDIA Stop: 04/05/25 02:44 Last Admin: 03/06/25 03:09 Dose: 100 mls/hr Documented By: CARLITOS Discontinued Medications Sodium Chloride (Nss) 1,000 mls @ 999 mls/hr IV .Q1H1M ONE Stop: 03/06/25 00:11 Last Infusion: 03/06/25 00:32 Dose: Infused Documented By: Admin: 03/05/25 23:21 Dose: 999 mls/hr Documented By: IDD Sodium Chloride (Nss) 1,000 mls @ 999 mls/hr IV .Q1H1M ONE Stop: 03/06/25 01:13 Last Infusion: 03/06/25 01:58 Dose: Infused Documented By: Admin: 03/06/25 00:54 Dose: 999 mls/hr Documented By: CARLITOS Acetaminophen (Ofirmev) 1,000 mg in 100 mls @ 400 mls/hr IV NOW STA Stop: 03/06/25 01:09 Last Infusion: 03/06/25 01:50 Dose: Infused Documented By: Admin: 03/06/25 01:01 Dose: 400 mls/hr Documented By: CARLITOS Levetiracetam (Levetiracetam 500 Mg/5 Ml Vial) 1,000 mg IV NOW STA Stop: 03/05/25 23:12 Last Admin: 03/05/25 23:21 Dose: 1,000 mg Documented By: STANLEY Imaging Data Attestation: I personally reviewed and interpreted this imaging study as follows: Radiologist's Impression: Face CT 03/05/25 23:11 Exam(s): CT FACIAL Without Contrast EXAM: CT Head and Maxillofacial Without Intravenous Contrast CLINICAL HISTORY: Reason for exam: fall. OTHER: Other Notes: EMS reports pt was playing football when bystanders noticed pt staring off and having seizure like activity and fell to the ground. States lasting 30-40 seconds. Pt has a bruised left eye, states unsure if it happened from the fall or prior injury. Pt states having hx of seizures TECHNIQUE: Axial computed tomography images of the head/brain and face without intravenous contrast. CTDI is 11.88 mGy and DLP is 221.78 mGy-cm. Automated exposure control was utilized for the study. A dose lowering technique was utilized adhering to the principles of ALARA. COMPARISON: No relevant prior studies available. FINDINGS: Brain: Unremarkable. No hemorrhage. No significant white matter disease. No edema. Ventricles: Unremarkable. No ventriculomegaly. Bones/joints: No acute fracture. Soft tissues: There is mild soft tissue swelling over the left maxilla and orbit. Sinuses: Unremarkable as visualized. No acute sinusitis. Mastoid air cells: Unremarkable as visualized. No mastoid effusion. Orbits: Unremarkable as visualized. IMPRESSION: No evidence of acute facial bone pathology. Electronically signed by: Jocelyne Ta MD 03/06/25 02:[address] 03/05/25 23:11 Exam(s): CT HEAD Without Contrast EXAM: CT Head Without Intravenous Contrast CLINICAL HISTORY: Reason for exam: fall. OTHER: Other Notes: EMS reports pt was playing football when bystanders noticed pt staring off and having seizure like activity and fell to the ground. States lasting 30-40 seconds. Pt has a bruised left eye, states unsure if it happened from the fall or prior injury. Pt states having hx of seizures TECHNIQUE: Axial computed tomography images of the head/brain without intravenous contrast. CTDI is 38.31 mGy and DLP is 546.36 mGy-cm. Automated exposure control was utilized for the study. A dose lowering technique was utilized adhering to the principles of ALARA. COMPARISON: No relevant prior studies available. FINDINGS: Brain: Unremarkable. No hemorrhage. No significant white matter disease. No edema. Ventricles: Unremarkable. No ventriculomegaly. Bones/joints: Unremarkable. No acute fracture. Soft tissues: There is mild soft tissue spine over the left maxilla and orbit. Sinuses: Unremarkable as visualized. No acute sinusitis. Mastoid air cells: Unremarkable as visualized. No mastoid effusion. IMPRESSION: No evidence of acute intracranial pathology. Electronically signed by: Jocelyne Ta MD 03/06/25 02:47 AM Chest X-Ray 03/05/25 23:23 EXAM: XR chest 1V portable CLINICAL HISTORY: LOC TECHNIQUE: An X-ray image of the chest was obtained in the AP projection. COMPARISON: No prior studies are available for comparison. FINDINGS: There is no evidence of consolidation, collapse, or focal opacities. No pulmonary nodules are identified. There is no evidence of pleural effusion or pleural thickening. Heart and Mediastinum: The heart size and shape are normal. There is no mediastinal widening or mass. No hilar or mediastinal lymphadenopathy is seen. Bony Thorax: The bony thorax appears intact, without fractures or deformities. Soft Tissues: The soft tissues overlying the chest wall are unremarkable. Chest leads are seen. IMPRESSION: There is no evidence of consolidation or pleural effusion. Electronically signed by Tate Johnson 03-06-2025 01:07 AM Shoulder X-Ray 03/06/25 01:13 EXAM: XR shoulder LT min 2V routine CLINICAL HISTORY: fall TECHNIQUE: X-ray images of the left shoulder were obtained in anteroposterior (AP) projections. COMPARISON: No prior studies are available for comparison. FINDINGS: Bone Structure: The bone structure is normal and aligned. There is no evidence of fracture or dislocation. The humeral head is properly positioned in the glenoid fossa. No osseous lesions or abnormalities are identified. Joint Spaces: The glenohumeral and acromioclavicular joint spaces are normal. There is no evidence of joint effusion or subluxation. Soft Tissues: The soft tissues appear normal and unremarkable. No soft tissue swelling, calcifications, or foreign bodies are noted. Additional Findings: There are no signs of osteoarthritis, bone spurs, lytic, or sclerotic lesions. IMPRESSION: No evidence of acute fracture, dislocation, or significant soft tissue abnormalities. Disclaimer: A subtle bone abnormality or fracture may not be readily apparent on X-rays, thus clinical correlation and further imaging including follow-up CT, MRI, or follow-up X-rays are advised as needed. Electronically signed by Tate Johnson 03-06-2025 02:41 AM Abdomen/Pelvis CT 03/06/25 02:29 EXAM: CT abd pelvis wo con CLINICAL HISTORY: Seizure, fall. TECHNIQUE: Non-contrast CT of the abdomen and pelvis was performed following the protocol: axial images, as well as reconstructed coronal and sagittal images, were obtained. One of the following dose reduction techniques was utilized for this exam: automated exposure control, adjustment of the mA and/or kV according to patient size, and use of iterative reconstruction. COMPARISON: No prior studies are available for comparison. FINDINGS: Abdomen: Liver: The liver is normal in size, shape, and density. No focal lesions, cysts, or masses are identified. Gallbladder and Biliary System: The gallbladder is normal in size and shape. No wall thickening, pericholecystic fluid, or gallstones are identified. Pancreas: The pancreatic head, body, and tail are visualized and appear normal in size and density. No pancreatic masses or calcifications are noted. Spleen: The spleen is normal in size, shape, and density. No splenic lesions or masses are identified. Appendix: The appendix is not well visualized. No CT signs of inflammatory changes are present in the right iliac fossa. There is no evidence of appendiceal abscess or perforation. Kidneys and Adrenal Glands: Both kidneys are normal in size, shape, and position. Cortical thickness is within normal limits. No renal calculi or hydronephrosis are present. The adrenal glands are unremarkable. Abdominal Aorta and Vessels: The abdominal aorta and major branches are unremarkable, without evidence of an aneurysm or significant atherosclerosis. Pelvis: Urinary Bladder: The urinary bladder is normal in contour and wall thickness. No intraluminal lesions are identified. Prostate: The prostate is normal in size and contour. No masses or abnormal thickening are seen. Seminal Vesicles: The seminal vesicles demonstrate a normal appearance without abnormal enlargement or mass. Peritoneal and Retroperitoneal Structures: No free fluid or abnormal fluid collections are identified within the abdomen or pelvis. No lymphadenopathy is noted. Bowel: The visualized bowel loops are normal in caliber and appearance. There is no evidence of bowel obstruction or wall thickening. Bones and Soft Tissues: The pelvic bones and soft tissues are unremarkable. No fractures or abnormal masses are identified. IMPRESSION: No evidence of acute post-traumatic intra-abdominal pathology. Electronically signed by Tate Johnson 03-06-2025 03:48 AM Discharge Plan Visit Data Chief Complaint: Seizure Stated Complaint: SEIZURE ED Provider: Partha Carmichael ED Midlevel Provider: Didi Kaur Discharge Problem: Seizure, EVER (acute kidney injury), Metabolic acidosis Patient Disposition: Admitted As Inpatient Condition: Fair Forms Stand Alone Forms: [facility] [employer] Prescriptions Prescriptions: No Action No Known Home Medications Referrals Referrals: PCP,NO [Primary Care Provider] -
[2025-03-05] MEDS: SODIUM CHLORIDE 0.9% 1,000 ML IV ONE (23:21)
[2025-03-05 23:38] LABS: Hematocrit (blood only) 52.2 % (42.0-52.0); Hemoglobin 16.2 g/dL (14.0-18.0); Mean Corpuscular Hemoglobin 29.2 pg (25.0-34.0); Mean Corpuscular Volume 94.1 fL (80.0-100.0); Platelet Count 285 K/uL (130-400); RDW Standard Deviation 37.9 fL (36.4-46.3); Red Blood Count 5.55 M/uL (4.70-6.10); White Blood Count 18.45 K/ul (4.8-10.8)
[2025-03-06 00:07] LABS: Immature Granulocytes # (auto) 1.00 K/uL (0.01-0.20); Immature Granulocytes % (auto) 5.4 %; RBC Morphology Unremarkable
[2025-03-06 00:10] LABS: Alanine Aminotransferase 91.0 U/L (7-52); Albumin Globulin Ratio 1.1 (0.9-2); Albumin Level 4.9 gm/dl (3.4-5.0); Alkaline Phosphatase 143.0 U/L (34-104); Anion Gap 29.0 (3-11); Bilirubin,Total 0.5 mg/dl (0.2-1.0); Blood Urea Nitrogen 17.0 mg/dl (6-23); Calcium 10.3 mg/dl (8.6-10.3); Carbon Dioxide 9.0 mmol/L (21-32); Chloride 97.0 mmol/L (98-107); Creatine Kinase 1140.0 U/L (30-223); Creatinine Clr Calc Pharmacy 71.2 ml/min; Globulin 4.3 gm/dl (2.5-4.0); Glucose 147.0 mg/dl (70-99(Fasting)); Potassium 3.9 mmol/L (3.5-5.1); Sodium 135.0 mmol/L (136-145); Total Protein 9.2 gm/dl (6.0-8.3)
[2025-03-06] MEDS: SODIUM CHLORIDE 0.9% 1,000 ML IV ONE (00:54)
[2025-03-06] MEDS: ACETAMINOPHEN 1,000 MG/100 ML VIAL IV STA (01:01)
--- NOTE | 2025-03-06 01:07 | XRay Report ---
EXAM: XR chest 1V portable CLINICAL HISTORY: LOC TECHNIQUE: An X-ray image of the chest was obtained in the AP projection. COMPARISON: No prior studies are available for comparison. FINDINGS: There is no evidence of consolidation, collapse, or focal opacities. No pulmonary nodules are identified. There is no evidence of pleural effusion or pleural thickening. Heart and Mediastinum: The heart size and shape are normal. There is no mediastinal widening or mass. No hilar or mediastinal lymphadenopathy is seen. Bony Thorax: The bony thorax appears intact, without fractures or deformities. Soft Tissues: The soft tissues overlying the chest wall are unremarkable. Chest leads are seen. IMPRESSION: There is no evidence of consolidation or pleural effusion. Electronically signed by Tate Johnson 03-06-2025 01:07 AM
[2025-03-06 01:36] LABS: Appearance Urine Clear (Clear); Bacteria Urine Automated None Seen (None Seen); Epithelial Cell Urine Auto 0-2 /hpf (0-2); Glucose Urine UA Negative (Negative); RBC Urine Automated 0-2 /hpf (0-2); WBC Urine Automated 0-5 /hpf (0-5)
--- NOTE | 2025-03-06 01:49 | History & Physical Report ---
Date of Service March 06, 2025 Assessment & Plan (1) Seizure: (2) EVER (acute kidney injury): (3) Metabolic acidosis: Plan 24-year-old male PMHx 1 seizure in the past who presents now for a witnessed seizure the night of arrival. His workup reveals leukocytosis with overall stable H/H. CMP is with abnormalities to include Na 135, Cl 97, CO2 9, AG 29, Cr 1.81, and elevated liver enzymes (AST 78, ALT 91, alk phos 143). CK is also increased at 1140. Imaging WNL. Neurology was consulted. Admission for further evaluation of seizure as well as to correct electrolyte abnormalities. #Seizure/Rhabdomyolysis induced EVER/Metabolic acidosis Prior history of seizure in the past, was not started on antiepileptics at that time. Witnessed seizure the night of arrival, ~ 30-40 seconds in total duration with tonic-clonic movements. Labs support ? post convulsive-like pattern- leukocytosis (18k), CO2 9, AG 29, Cr 1.81, CK 1140. Pt denies recent trauma, drug use, or illness otherwise. Was at [employer] when it occurred. Admission for further evaluation as well as to correct electrolyte abnormalities. - CBC leukocytosis 18k, stable H/H; CMP Na 135, Cl 97, CO2 9, AG 29, Cr 1.81; CK 1140 - CBC, BMP, CK am - Lactate 1.2; VBGs pH 7.32 otherwise unremarkable; procal 0.07; BNP 22 - Trop 16.9; Echo pending am - UA without infection; UDS negative; alcohol level negative - CXR WNL; R shoulder XR no fx; Head CT WNL; Face CT WNL - CTAP WNL, C spine CT no acute findings, and chest CT no acute findings - Seizure precautions - Bicarb drip initiated -- trend BMP, Mg, VBGs q4hr - IVF LR @ 80 mL/hr - Zofran prn N/V - Lorazepam prn seizure - MRI brain pending - Neuro consulted - appreciate input + recs Dispo: Admit, PCU VTE Prophylaxis: SCDs This document was dictated utilizing [email or web address]. Please excuse any grammatical errors that may be secondary to use of this software. Admission and Anticipated Discharge Date Admission Date: 03/06/2025 History of Present Illness Chief Complaint: Seizure Primary Care Provider: NO PCP 24-year-old male PMHx 1 seizure in the past who presents now for a witnessed seizure the night of arrival. 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 Patient has not been on antiepileptics. He reports that day of arrival, he was at football practice and had just run 20 routes when he remembers going to grab a drink of water and then he does not remember anything after this. He apparently had a witnessed 30 to 40-second full body seizure, landing on his left side and face down. Friends report that he was foaming at the mouth. He remembers earlier events throughout the day such as forgetting his keys and need to go to his classes. He was not feeling ill otherwise. No significant head trauma the patient is aware of. Specifically denies illicit drug use, and stating that his last alcoholic beverage was approximately 2 weeks ago. Admits to taking 2 Advil earlier the day of arrival. States that his L shoulder is slightly tender and feels stoved, but otherwise without complaints. Patient is aware of where he is at and the date. Denying chest pain, SOB, palpitations, abdominal pain, N/V/D/C, numbness/tingling, fever/chills, URI symptoms, LUTS, weakness, or presyncope. ED evaluation reveals CBC with leukocytosis 18.45, H/H 16.2/52.2; CMP Na 135, Cl 97, CO2 9, AG 29, Cr 1.81, ratio 9.4, glucose 147, AST 78, ALT 91, alk phos 143; CK 1140; protein 9.2, globulin 4.3; UA negative for infection; CXR WNL; Head CT pending official read; face CT pending official read.; Provided with 2L NSS, levetiracetam 1g IV, and acetaminophen 1g IV in ED. Please see Dr. Damon's attestation for adjustments/additions to treatment plan. 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 Beliefs That Will Affect Care: None Current Living Situation: Family Feels Safe at Home: Yes Assistive Devices: None Review of Systems Review of Systems: All systems reviewed & are unremarkable except as noted in Subjective Physical Exam Physical Exam: General: No acute distress Skin: Warm and dry Head: Normocephalic, atraumatic Eyes: PERRL, conjunctivae clear, sclera non-icteric, just below L eye with bruising and slight skin tear, not tender to palpation ENT: External ear and ear canal without swelling; nose atraumatic; good dentition, tongue normal appearance, pharynx normal Neck: Supple, no LAD Cardio: RRR, no M/G/R, S1 and S2 normal Resp: No respiratory distress, Lungs CTA in all lobes bilaterally, no wheezes, rales, or rhonchi Abdomen: Soft, symmetric, nontender; No masses or hepatosplenomegaly; Bowel sounds normoactive MSK: Normal ROM specifically to LUE/shoulder; no deformities; pulses palpable and equal; no edema. Neuro: Awake, alert; Sensation intact bilaterally; CN grossly intact Psych: Still appears slightly postictal but responding appropriately, appropriate mood and affect; good judgement and insight; " [facility]", " February 2025". Results & Data Results & Data Vital Signs (Past 12 Hours) Vital Signs Temp Pulse Pulse Resp BP BP Pulse Ox 03/05/25 23:15 106 H 03/05/25 23:11 36.6 C 93 H 20 121/52 L 98 03/05/25 23:11 97 03/05/25 23:00 36.4 C 113 H 22 93/56 L 96 O2 Del Method 03/05/25 23:15 03/05/25 23:11 Room Air 03/05/25 23:11 Room Air 03/05/25 23:00 Room Air Laboratory Results 03/06/25 03/05/25 03/05/25 00:49 23:10 23:05 WBC 18.45 H RBC 5.55 Hgb 16.2 POC Hgb 18.4 H Hct 52.2 H POC Hct 54 H MCV 94.1 MCH 29.2 MCHC 31.0 L RDW Std Deviation 37.9 RDW Coeff of Vinicius 11.0 L Plt Count 285 MPV 10.0 Immature Gran % (Auto) 5.4 Neut % (Auto) 55.2 Lymph % (Auto) 31.9 Titus % (Auto) 6.0 Eos % (Auto) 1.0 Baso % (Auto) 0.5 Neut # (Auto) 10.20 H Lymph # (Auto) 5.88 H Titus # (Auto) 1.10 H Eos # (Auto) 0.18 Baso # (Auto) 0.09 Immature Gran # (Auto) 1.00 H RBC Morphology Unremarkable POC Sodium 137 Sodium 135 L POC Potassium 4.0 Potassium 3.9 POC Chloride 104 Chloride 97 L Carbon Dioxide 9 L* POC Total CO2 10 L Anion Gap 29 H POC Anion Gap 28.0 H POC BUN 17 BUN 17 Creatinine 1.81 H POC Creatinine 1.9 H Est Cr Clr Drug Dosing 71.2 eGFR 53.55 BUN/Creatinine Ratio 9.4 L Glucose 147 H POC Glucose (other) 141 H Calcium 10.3 POC Ioniz Calcium Dipak 1.23 Total Bilirubin 0.5 AST 78 H ALT 91 H Alkaline Phosphatase 143 H Total Creatine Kinase 1140 H Troponin I High Sens 16.9 Total Protein 9.2 H Albumin 4.9 Globulin 4.3 H Albumin/Globulin Ratio 1.1 Urine Color Yellow Urine Appearance Clear Urine pH 5.0 Ur Specific [place] 1.013 Urine Protein 1+ H Urine Glucose (UA) Negative Urine Ketones Negative Urine Blood 2+ H Urine Nitrite Negative Urine Bilirubin Negative Urine Urobilinogen Negative Ur Leukocyte Esterase Negative Urine WBC (Auto) 0-5 Urine RBC (Auto) 0-2 U Hyaline Cast (Auto) 11-20 H U Epithel Cells (Auto) 0-2 Urine Bacteria (Auto) None Seen Urine Mucus Present A Urine Comment Diagnostic Findings Chest X-Ray 03/05/25 23:23 EXAM: XR chest 1V portable CLINICAL HISTORY: LOC TECHNIQUE: An X-ray image of the chest was obtained in the AP projection. COMPARISON: No prior studies are available for comparison. FINDINGS: There is no evidence of consolidation, collapse, or focal opacities. No pulmonary nodules are identified. There is no evidence of pleural effusion or pleural thickening. Heart and Mediastinum: The heart size and shape are normal. There is no mediastinal widening or mass. No hilar or mediastinal lymphadenopathy is seen. Bony Thorax: The bony thorax appears intact, without fractures or deformities. Soft Tissues: The soft tissues overlying the chest wall are unremarkable. Chest leads are seen. IMPRESSION: There is no evidence of consolidation or pleural effusion. Electronically signed by Tate Johnson 03-06-2025 01:07 AM Medications Administered 2L NSS Levetiracetam 1g IV Acetaminophen 1g IV Code Status & VTE Plan Code Status Full Supervising Physician Co-Signing Physician Notes Attending addendum: I have physically seen this patient, have supervised the HAMILTON's activities, and agree with the H&P unless as otherwise noted. Assessment and Plan: The patient is a 24-year-old male with past medical history of seizure disorder, presents to the emergency department for witnessed seizure prior to arrival. Laboratory abnormalities emergency department include anion gap 29, creatinine 1.81, elevated AST of 78 and ALT 91. CK was 1140. [facility] Seizure disorder/seizure prior to arrival- The patient will be admitted to telemetry for serial cardiac enzymes, serial EKG's, cardiac rhythm monitoring and a 2-D echocardiogram with Dopplers. CT scan head and face were both negative Chest x-ray negative Patient was given Keppra 1000 mg IV per neurology recommendation Status post normal saline 2 L IV fluid bolus and Tylenol 1 g IV from the ED Will treat acute kidney injury, metabolic acidosis and rhabdomyolysis as noted below. Acute kidney injury/rhabdomyolysis/metabolic acidosis- Placed on LR at 80 mL/h Bicarb drip 150 mL fluids at 100 mL/h BMP, magnesium, VBG's every 4 hours Zofran 4 mg IV every 6 hours as needed Lorazepam 1 mg IV Q4 5 minutes as needed seizure activity as noted MRI brain without contrast ordered Consulting neurology PG Care Time/CCT Total # of Minutes Spent Total Time Spent with Patient: Total time spent is greater than 50% in coordination of care (as documented) at patient's floor/unit and/or counseling patient: Coding Level of Care Code 00448 INT INP/OBS CARE 3/75MIN Diagnoses Seizure R56.9 EVER (acute kidney injury) N17.9 Metabolic acidosis E87.20
[2025-03-06 02:39] LABS: Base Excess VBG -4.3 mEq/L; HCO3 VBG 22 mmol/L; Oxygen Saturation VBG 76.6 %; PCO2 VBG 42 mmHg (38-50); PO2 VBG 49 mmHg; pH VBG 7.32 (7.36-7.41)
[2025-03-06] MEDS ORDERED: STAT IV/IM STA (02:41)
--- NOTE | 2025-03-06 02:42 | XRay Report ---
EXAM: XR shoulder LT min 2V routine CLINICAL HISTORY: fall TECHNIQUE: X-ray images of the left shoulder were obtained in anteroposterior (AP) projections. COMPARISON: No prior studies are available for comparison. FINDINGS: Bone Structure: The bone structure is normal and aligned. There is no evidence of fracture or dislocation. The humeral head is properly positioned in the glenoid fossa. No osseous lesions or abnormalities are identified. Joint Spaces: The glenohumeral and acromioclavicular joint spaces are normal. There is no evidence of joint effusion or subluxation. Soft Tissues: The soft tissues appear normal and unremarkable. No soft tissue swelling, calcifications, or foreign bodies are noted. Additional Findings: There are no signs of osteoarthritis, bone spurs, lytic, or sclerotic lesions. IMPRESSION: No evidence of acute fracture, dislocation, or significant soft tissue abnormalities. Disclaimer: A subtle bone abnormality or fracture may not be readily apparent on X-rays, thus clinical correlation and further imaging including follow-up CT, MRI, or follow-up X-rays are advised as needed. Electronically signed by Tate Johnson 03-06-2025 02:41 AM
--- NOTE | 2025-03-06 02:48 | CT Scan Report ---
Exam(s): CT HEAD Without Contrast EXAM: CT Head Without Intravenous Contrast CLINICAL HISTORY: Reason for exam: fall. OTHER: Other Notes: EMS reports pt was playing football when bystanders noticed pt staring off and having seizure like activity and fell to the ground. States lasting 30-40 seconds. Pt has a bruised left eye, states unsure if it happened from the fall or prior injury. Pt states having hx of seizures TECHNIQUE: Axial computed tomography images of the head/brain without intravenous contrast. CTDI is 38.31 mGy and DLP is 546.36 mGy-cm. Automated exposure control was utilized for the study. A dose lowering technique was utilized adhering to the principles of ALARA. COMPARISON: No relevant prior studies available. FINDINGS: Brain: Unremarkable. No hemorrhage. No significant white matter disease. No edema. Ventricles: Unremarkable. No ventriculomegaly. Bones/joints: Unremarkable. No acute fracture. Soft tissues: There is mild soft tissue spine over the left maxilla and orbit. Sinuses: Unremarkable as visualized. No acute sinusitis. Mastoid air cells: Unremarkable as visualized. No mastoid effusion. IMPRESSION: No evidence of acute intracranial pathology. Electronically signed by: Jocelyne Ta MD 03/06/25 02:47 AM
--- NOTE | 2025-03-06 02:50 | CT Scan Report ---
Exam(s): CT FACIAL Without Contrast EXAM: CT Head and Maxillofacial Without Intravenous Contrast CLINICAL HISTORY: Reason for exam: fall. OTHER: Other Notes: EMS reports pt was playing football when bystanders noticed pt staring off and having seizure like activity and fell to the ground. States lasting 30-40 seconds. Pt has a bruised left eye, states unsure if it happened from the fall or prior injury. Pt states having hx of seizures TECHNIQUE: Axial computed tomography images of the head/brain and face without intravenous contrast. CTDI is 11.88 mGy and DLP is 221.78 mGy-cm. Automated exposure control was utilized for the study. A dose lowering technique was utilized adhering to the principles of ALARA. COMPARISON: No relevant prior studies available. FINDINGS: Brain: Unremarkable. No hemorrhage. No significant white matter disease. No edema. Ventricles: Unremarkable. No ventriculomegaly. Bones/joints: No acute fracture. Soft tissues: There is mild soft tissue swelling over the left maxilla and orbit. Sinuses: Unremarkable as visualized. No acute sinusitis. Mastoid air cells: Unremarkable as visualized. No mastoid effusion. Orbits: Unremarkable as visualized. IMPRESSION: No evidence of acute facial bone pathology. Electronically signed by: Jocelyne Ta MD 03/06/25 02:50 AM
[2025-03-06] MEDS: SODIUM BICARBONATE 8.4% 150 MEQ in WATER, STERILE 1,000 ML IV SCH (03:09)
[2025-03-06 03:25] LABS: Amphetamines+Metham, Urine Neg (Neg); MDMA (Ecstacy), Urine Neg (Neg); Marijuana, Urine Neg (Neg)
--- NOTE | 2025-03-06 03:48 | CT Scan Report ---
EXAM: CT abd pelvis wo con CLINICAL HISTORY: Seizure, fall. TECHNIQUE: Non-contrast CT of the abdomen and pelvis was performed following the protocol: axial images, as well as reconstructed coronal and sagittal images, were obtained. One of the following dose reduction techniques was utilized for this exam: automated exposure control, adjustment of the mA and/or kV according to patient size, and use of iterative reconstruction. COMPARISON: No prior studies are available for comparison. FINDINGS: Abdomen: Liver: The liver is normal in size, shape, and density. No focal lesions, cysts, or masses are identified. Gallbladder and Biliary System: The gallbladder is normal in size and shape. No wall thickening, pericholecystic fluid, or gallstones are identified. Pancreas: The pancreatic head, body, and tail are visualized and appear normal in size and density. No pancreatic masses or calcifications are noted. Spleen: The spleen is normal in size, shape, and density. No splenic lesions or masses are identified. Appendix: The appendix is not well visualized. No CT signs of inflammatory changes are present in the right iliac fossa. There is no evidence of appendiceal abscess or perforation. Kidneys and Adrenal Glands: Both kidneys are normal in size, shape, and position. Cortical thickness is within normal limits. No renal calculi or hydronephrosis are present. The adrenal glands are unremarkable. Abdominal Aorta and Vessels: The abdominal aorta and major branches are unremarkable, without evidence of an aneurysm or significant atherosclerosis. Pelvis: Urinary Bladder: The urinary bladder is normal in contour and wall thickness. No intraluminal lesions are identified. Prostate: The prostate is normal in size and contour. No masses or abnormal thickening are seen. Seminal Vesicles: The seminal vesicles demonstrate a normal appearance without abnormal enlargement or mass. Peritoneal and Retroperitoneal Structures: No free fluid or abnormal fluid collections are identified within the abdomen or pelvis. No lymphadenopathy is noted. Bowel: The visualized bowel loops are normal in caliber and appearance. There is no evidence of bowel obstruction or wall thickening. Bones and Soft Tissues: The pelvic bones and soft tissues are unremarkable. No fractures or abnormal masses are identified. IMPRESSION: No evidence of acute post-traumatic intra-abdominal pathology. Electronically signed by Tate Johnson 03-06-2025 03:48 AM
--- NOTE | 2025-03-06 04:17 | CT Scan Report ---
EXAM: CT chest diagnostic wo con CLINICAL HISTORY: seizure TECHNIQUE: Contiguous axial CT images of the chest were acquired without the administration of intravenous contrast. Coronal and sagittal reconstructions were obtained. One of the following dose reduction techniques was utilized for this exam: automated exposure control, adjustment of the mA and/or kV according to patient size, or the use of iterative reconstruction. COMPARISON: CR chest dated 03/04/2025. FINDINGS: Lungs: The lung parenchyma is clear, with no evidence of consolidation, collapse, or focal lesions. No pulmonary nodules or masses are identified. There is no evidence of interstitial lung disease or emphysema. No pleural effusion or pleural thickening is seen. Mediastinum: The mediastinum is normal in size and contour. There is no mediastinal mass or abnormal lymphadenopathy. The heart size is within normal limits. Hilar Structures: The hilar structures appear normal, without enlargement or abnormality. There are no atheromatous calcifications of the aorta or coronary arteries. Trachea and Main Bronchi: The trachea and main bronchi are patent, without evidence of obstruction or abnormality. Chest Wall: The chest wall is unremarkable, with no evidence of soft tissue or bony abnormalities. Upper Abdomen: Please review the dedicated CT abdomen report. Bones: The visualized osseous structures are normal, with no evidence of fracture or lytic or sclerotic lesions. IMPRESSION: No acute post-traumatic abnormal pathology is identified. No significant interval changes are seen. Electronically signed by Tate Johnson 03-06-2025 04:16 AM
--- NOTE | 2025-03-06 04:18 | CT Scan Report ---
EXAM: CT cervical spine wo con CLINICAL HISTORY: seizure TECHNIQUE: Computed tomography of the cervical spine was performed without intravenous contrast. Contiguous axial images were obtained from the skull base to T2, with sagittal and coronal reformatted images reconstructed from the axial data. The CT scan was performed according to ALARA (as low as reasonably achievable). COMPARISON: None. FINDINGS: The normal cervical lordotic curvature is maintained. The cervical vertebral bodies are normal in height and alignment, with no evidence of fracture or subluxation. The lateral masses of C1 are symmetrical, and the dens is intact. The prevertebral soft tissues are not widened. The remaining suprahyoid and infrahyoid soft tissues in the neck are unremarkable. C2-C3: No disc bulge, mass effect on the cord, or neuroforaminal narrowing. C3-C4: No disc bulge, mass effect on the cord, or neuroforaminal narrowing. C4-C5: No disc bulge, mass effect on the cord, or neuroforaminal narrowing. C5-C6: No disc bulge, mass effect on the cord, or neuroforaminal narrowing. C6-C7: No disc bulge, mass effect on the cord, or neuroforaminal narrowing. C7-T1: No disc bulge, mass effect on the cord, or neuroforaminal narrowing. The thyroid gland appears unremarkable. IMPRESSION: 1. No acute fracture or subluxation in the cervical spine. Electronically signed by Tien Meyers 03-06-2025 04:17 AM
[2025-03-06 04:31] LABS: Anion Gap 9 (3-11); Blood Urea Nitrogen 14 mg/dl (6-23); Calcium 8.6 mg/dl (8.6-10.3); Carbon Dioxide 18 mmol/L (21-32); Chloride 108 mmol/L (98-107); Creatinine Clr Calc Pharmacy 97.6 ml/min; Glucose 83 mg/dl (70-99(Fasting)); Magnesium 2.3 mg/dl (1.7-2.4); Sodium 135 mmol/L (136-145)
[2025-03-06] MEDS: LACTATED RINGER'S 1,000 ML IV SCH (05:20)
[2025-03-06 05:52] LABS: Base Excess VBG -2.9 mEq/L; HCO3 VBG 23 mmol/L; Oxygen Saturation VBG 93.0 %; PCO2 VBG 41 mmHg (38-50); PO2 VBG 65 mmHg; pH VBG 7.35 (7.36-7.41)
[2025-03-06] MEDS: ONDANSETRON INJ 2 MG/ML 2 ML VIAL ONE (06:07)
[2025-03-06 06:15] LABS: Anion Gap 7.0 (3-11); Blood Urea Nitrogen 14.0 mg/dl (6-23); Calcium 8.8 mg/dl (8.6-10.3); Carbon Dioxide 23.0 mmol/L (21-32); Chloride 107.0 mmol/L (98-107); Creatinine Clr Calc Pharmacy 90.3 ml/min; Glucose 83.0 mg/dl (70-99(Fasting)); Magnesium 2.3 mg/dl (1.7-2.4); Potassium 3.9 mmol/L (3.5-5.1); Sodium 137.0 mmol/L (136-145)
[2025-03-06] MEDS ORDERED: LORazepam Inj 1 MG in SYRINGE 0.5 ML IV PRN (07:27)
[2025-03-06] MEDS: GADOBUTROL 65ML VIAL IV ONE (09:55)
--- NOTE | 2025-03-06 10:57 | Magnetic Resonance Report ---
MRI OF THE BRAIN WITHOUT AND WITH IV CONTRAST SEIZURE PROTOCOL CLINICAL HISTORY: Seizure. Fall. COMPARISON STUDY: Head CT March 05, 2025. TECHNIQUE: Utilizing a 3 Lakia magnet and dedicated coil, multiplanar, multiecho imaging of the brai n was performed pre and postcontrast administration. IV administration of 8 mL of Gadavist contrast was uneventful. Thin cut coronal T2 imaging was performed according to seizure protocol. FINDINGS: There are no foci of restricted diffusion to suggest acute infarct. No acute intracranial h emorrhage, midline shift or mass effect is present. Brain volume is normal. Ventricular system is nor mal. Basal cisterns are patent. There are no extra axial collections. Flow-voids for the major intrac ranial vessels are present. There is no intracranial mass or pathologic enhancement. There is no pare nchymal signal abnormality. Calvarial signal is normal. IMPRESSION: Unremarkable MRI of the brain. ACT 112: Negative or not required by law. Electronically signed by: Pollo Moore M.D. 03/06/2025 10:54 AM
--- NOTE | 2025-03-06 16:40 | Neurology Consultation ---
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 He had a similar seizure episode last fall. In speaking with his family at bedside, he had a seizure episode while in middle school and had an unremarkable neurological assessment at that time, was never prescribed an antiseizure medication. 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 He has an unremarkable brain MRI. Was given a loading dose of Keppra, 1000 mg in the emergency department. Given that he has had several seizure episodes over his lifetime, I would recommend continuing treatment with an antiseizure medication, would recommend Keppra 500 mg p.o. twice daily. I would also recommend a routine bedside EEG. Additional counseling given to the patient and his family regarding his suspected diagnosis of seizure disorder with potential need for long-term treatment with an antiseizure medication. He may follow-up with me in neurology clinic in 2 to 3 weeks after discharge, may be seen by myself or an HAMILTON at that time. Please call with any questions. History of Present Illness Reason for Consultation: Seizure Requesting Physician: Vincent Attending Physician: Aurora Arana MD History of Present Illness The patient is a 24-year-old male [employer] student who had a witnessed generalized tonic-clonic seizure while playing intermural football. He is relatively amnestic for the event. He may have bit his tongue. The episode reportedly lasted about 40 seconds and was complicated by an abrasion under the left eye, he may have sustained a mild injury to the left shoulder as well. He does not recall any specific warning signs before the event. He currently feels fine, denies headache, fever, myalgia. He denies any recent illness or vaccination. I evaluated him with his family at bedside. They report that he had febrile seizures as an infant that eventually subsided. He had a few isolated seizure episodes while in middle school and had some neurological evaluation in [place]. His family indicates that no abnormalities were identified and he was never started on an antiseizure medication. He apparently had a witnessed seizure last fall but apparently did not have any subsequent neurological testing or care. He did have a brain MRI completed earlier this morning, seizure protocol, with and without gadolinium enhancement. No abnormalities identified. I independently reviewed these images, no evidence of mesial temporal sclerosis, nodular heterotopia's, stru ctural abnormality, or seizure focus. He was given a 1 g loading dose of Keppra at the time of presentation. Allergies Allergy/AdvReac Type Severity Reaction Status Date / Time No Known Allergies Allergy Verified 03/06/25 00:00 Home Medications Medication Instructions Recorded Confirmed Type No Known Home Medications 03/06/25 03/06/25 History Patient History Social History Smoking Status: Never smoker Hx Alcohol Use: Yes Alcohol type: beer, wine and hard liquor Hx Substance Use: No Preferred Language: Japanese Communication Ability: Effective Screedman Required: No Beliefs That Will Affect Care: None Current Living Situation: Family Other Information That Helps Us Care for You: No Feels Safe at Home: Yes Safety Concerns: Feels Safe At This Time Assistive Devices: None Review of Systems Constitutional: no fever Eyes: no blind spots and no diplopia Ear, Nose, Mouth, Throat: no hearing loss Respiratory: no dyspnea Cardiovascular: no palpitations Gastrointestinal: no nausea and no vomiting Genitourinary: no dysuria Musculoskeletal: no myalgia Integumentary: no rash and no lesions Neurologic: as per Subjective / HPI; no gait abnormality, no unsteadiness, no localized weakness, no loss of sensation, no lack of coordination, no tremor(s), no abnormal movements, no headache(s), no abnormal speech, no confusion and no memory loss Psychiatric: no depression and no anxiety Hematologic / Lymphatic: no easy bleeding and no easy bruising Exam (Neuro) Constitutional: well developed and well nourished; no acute distress Eyes: normal visual de souza by confrontation, PERRL and EOM intact bilaterally; no nystagmus Neurologic: Oriented to:: Person, Place and Time Memory: Short Term Intact and Remote Intact Attention: Span Intact and Concentration Intact Speech Fluency: negative Dysarthria or Dysfluency Speech Aphasia: negative Aphasia Fund of Knowledge: Current Events, Past History and Vocabulary Cranial Nerves: Normal II, III, IV, , V, VII, VIII, IX, X, XI and XII Motor Strength: Normal Lower Extremities and Normal Upper Extremities Motor Tone: Normal Lower Extremities and Normal Upper Extremities Muscle Bulk/Involuntary Movements: No Involuntary Movements; negative Muscle Atrophy Sensation: Light Touch Intact, Pain/Temperature Intact and Proprioception Intact Coordination: Normal; negative Limited Balance, Dysdiadochokinesia, Finger-Nose Abnormal or Heel-Douglas Abnormal Deep Tendon Reflexes: Rt Triceps: 2+, Lt Triceps: 2+, Rt Biceps: 2+, Lt Biceps: 2+, Rt Brachioradialis: 2+, Lt Brachioradialis: 2+, Rt Patellar: 2+, Lt Patellar: 2+, Rt Ankle: 2+ and Lt Ankle: 2+ Results & Data Vital Signs (Past 12 Hours) Vital Signs Temp Pulse Pulse Resp BP BP Pulse Ox 03/06/25 14:00 71 03/06/25 11:29 36.6 C 68 16 131/64 97 03/06/25 07:00 77 03/06/25 06:45 52 L 03/06/25 04:50 36.4 C L 66 12 105/60 100 03/06/25 04:50 03/06/25 04:50 68 03/06/25 04:30 36.4 C L 66 18 105/60 100 Pulse Ox O2 Del Method O2 Del Method 03/06/25 14:00 03/06/25 11:29 Room Air 03/06/25 07:00 03/06/25 06:45 03/06/25 04:50 Room Air 03/06/25 04:50 100 Room Air 03/06/25 04:50 03/06/25 04:30 Room Air Laboratory Results WBC 18.45, hemoglobin 16.2, platelet count 285, sodium 137, potassium 3.9, BUN 14, creatinine 1.36, glucose 83, calcium 8.8, CK 1140, urine toxicology screen negative, ethyl alcohol level less than 10.0 Diagnostic Findings Electrocardiogram, normal sinus rhythm Coding Level of Care Code 86478 INT INP/OBS CARE 375MIN Diagnoses Seizure R56.9 Time Spent (min) 80 Comment Total time includes patient contact, chart review, counseling, note preparation
--- NOTE | 2025-03-06 19:19 | Hospitalist Progress Note ---
Date of Service March 06, 2025 Assessment & Plan (1) Seizure: (2) EVER (acute kidney injury): (3) Metabolic acidosis: Plan 24-year-old male PMHx 1 seizure in the past who presents now for a witnessed seizure the night of arrival. His workup reveals leukocytosis with overall stable H/H. CMP is with abnormalities to include Na 135, Cl 97, CO2 9, AG 29, Cr 1.81, and elevated liver enzymes (AST 78, ALT 91, alk phos 143). CK is also increased at 1140. Imaging WNL. Neurology was consulted. Admission for further evaluation of seizure as well as to correct electrolyte abnormalities. # seizure Had a seizure a year ago under similar circumstances (football practice) and one in middle school. Hx concussion. Hx febrile seizures as infant -brain MRI normal -EEG ordered -started keppra 500 mg po bid -discussed with neurology Dr. Guillory #EVER, metabolic acidosis, elevated LFTs, elevated CK -caused by seizure -treated with IV bicarbonate drip. Resolved stop bicarb. -AM BMP, LFT anticipate home tomorrow pending EEG and no further seizures Admission and Anticipated Discharge Date Admission Date: March 06, 2025 Subjective No further seizures Seemed sleepy midday but after ongoing conversation was alert Had a seizure a year ago under similar circumstances (football practice) and one in middle school. Hx concussion Physical Exam Physical Exam: Last 24h vitals reviewed GEN: no acute distress, sitting in bed HEENT: pupils equal, sclerae anicteric, moist MM. Minor laceration/abrasion left lateral brow RESP: normal WOB, CTAB CV: reg no mrg ABD: soft/nt/nd +BT : no armas SKIN: warm and dry, no generalized rashes L shoulder exam - soreness on external rotation with strength intact. Max soreness is supraacromial while resisting, extended and internally rotated ("impingement sign" position) possible mild weakness vs pain. Has full ROM inc luding overhead. No deformity NEURO: AOx person, place, and situation. Face symmetric, speech normal, moves 4 ext spontaneously and equally Results & Data Results & Data Vital Signs (Past 12 Hours) Vital Signs Temp Pulse Pulse Resp BP Pulse Ox O2 Del Method 03/06/25 17:03 36.7 C 57 L 18 104/51 L 98 Room Air 11/12/25 14:00 71 03/06/25 11:29 36.6 C 68 16 131/64 97 Room Air Laboratory Results metabolic acidosis resolved Na, K normal No AG BUN/Cr normal heme and protein in urine brain MRI normal PG Care Time/CCT Total # of Minutes Spent Total Time Spent with Patient: Total time spent is greater than 50% in coordination of care (as documented) at patient's floor/unit and/or counseling patient: Coding Level of Care Code 72072 SUB INP/OBS CARE 2/35MIN Diagnoses Seizure R56.9 EVER (acute kidney injury) N17.9 Metabolic acidosis E87.20
[2025-03-06] MEDS: levETIRAcetam 500 MG TAB PO SCH (20:15)
[2025-03-07 05:20] VITALS: O2SAT 98
--- NOTE | 2025-03-07 07:57 | Electroencephalogram ---
EEG Procedure Note Date of Service March 07, 2025 Start / End Times Start Time: 609 End Time: [address] Arana History 24-year-old with history of recurrent seizures and most recent seizure March 06 Home Medication List Medication Instructions Recorded Confirmed Type No Known Home Medications 03/06/25 03/06/25 History Inpatient Medication List Levetiracetam (Levetiracetam 500 Mg Tab) 500 mg PO BID CLAUDIA Stop: 04/05/25 20:59 Last Admin: 03/06/25 20:15 Dose: 500 mg Documented By: JOEY Discontinued Medications Gadobutrol (Gadobutrol 65ml Vial) 8 ml IV ONCE ONE Stop: 03/06/25 09:56 Last Admin: 03/06/25 09:55 Dose: 8 ml Documented By: ALTAF Sodium Chloride (Nss) 1,000 mls @ 999 mls/hr IV .Q1H1M ONE Stop: 03/06/25 00:11 Last Infusion: 03/06/25 00:32 Dose: Infused Documented By: Admin: 03/05/25 23:21 Dose: 999 mls/hr Documented By: STANLEY Sodium Chloride (Nss) 1,000 mls @ 999 mls/hr IV .Q1H1M ONE Stop: 03/06/25 01:13 Last Infusion: 03/06/25 01:58 Dose: Infused Documented By: Admin: 03/06/25 00:54 Dose: 999 mls/hr Documented By: CARLITOS Acetaminophen (Ofirmev) 1,000 mg in 100 mls @ 400 mls/hr IV NOW STA Stop: 03/06/25 01:09 Last Infusion: 03/06/25 01:50 Dose: Infused Documented By: Admin: 03/06/25 01:01 Dose: 400 mls/hr Documented By: CARLITOS Sodium Bicarbonate 150 meq/ (Sterile Water) 1,150 mls @ 50 mls/hr IV .Q23H CLAUDIA Stop: 04/05/25 02:44 Last Infusion: 03/06/25 07:54 Dose: Infused Documented By: Admin: 03/06/25 03:09 Dose: 100 mls/hr Documented By: CARLITOS Lactated Ringer's (Lr) 1,000 mls @ 80 mls/hr IV .[id number] CLAUDIA Stop: 03/06/25 17:19 Last Infusion: 03/06/25 17:53 Dose: Infused Documented By: Admin: 03/06/25 05:20 Dose: 80 mls/hr Documented By: TONIO Levetiracetam (Levetiracetam 500 Mg/5 Ml Vial) 1,000 mg IV NOW STA Stop: 03/05/25 23:12 Last Admin: 03/05/25 23:21 Dose: 1,000 mg Documented By: IDD Ondansetron HCl (Ondansetron Inj 2 Mg/Ml 2 Ml Vial) Confirm Administered Dose 4 mg .ROUTE .STK-MED ONE Stop: 03/05/25 23:02 Last Admin: 03/06/25 06:07 Dose: Not Given Documented By: TONIO Description This is a 21 electrode EEG with a single channel dedicated to limited EKG. The electrodes were placed in accordance with the International 10-20 system. Interpretation The predominant background activity consists of a very well modulated 12 Hz activity, of up to 30 mV in amplitude,seen symmetrically distributed over the posterior head regions, spreading anteriorly bilaterally. This activity attenuates with eye-opening and other alerting procedures. Superimposed over this background activity was a presence of higher amplitude (50 to 60 V) slow activity of a 4 to 5 Hz rhythm seen in the right hemisphere diffusely. This slowing was not present in the left hemisphere. Photic stimulation was performed and elicited no change in the background activity and no abnormal responses were seen. Hyperventilation was not performed. A mild amount of muscle and movement artifact activity contaminated the recording from time to time, yet did not hinder interpretation to any significant degree. Throughout the waking portion of the recording, no potentially epileptogenic discharges were seen. The patient entered the drowsy state intermittently throughout the recording. This was noted by generalized variables with slowing and irregularity diffusely bilaterally. Deeper stages of sleep were not recorded. No further activation was noted during drowsiness. In summary, this EEG was abnormal during wakefulness as noted by some mild, focal right hemispheric, diffuse slowing. Periods of drowsiness produced no further activation. No potentially epileptogenic discharges were seen throughout the recording. Clinical Correlation The absence of potentially epileptogenic activity does not exclude a seizure disorder, since interictally, EEGs can be normal. The mild right hemispheric slowing, in an otherwise conscious individual with no obvious neurologic deficits, is most consistent with postictal effect. Clinical correlation is required. [facility] EEG Procedure Codes Indication for Procedure (1) Seizure: Neurology Neurology: 83545 EEG include record awake & drowsy
--- NOTE | 2025-03-07 08:16 | Neurology Progress Note ---
Date of Service March 07, 2025 Assessment & Plan (1) Seizure: (2) EVER (acute kidney injury): Plan Patient had a generalized tonic-clonic seizure in the evening of March 05 playing intermural football. This was his third event. Currently, he is back to baseline with no focal findings, meningeal signs, or encephalopathy. MRI of the brain with and without contrast was unremarkable. There were no hippocampal or other abnormalities. The etiology of his seizures is likely genetic. He does have sleep deprivation through his work at times as well. EEG had some focal slowing diffusely in the right hemisphere of a mild nature which was likely postictal. No potentially epileptogenic discharges were seen. The patient is taking levetiracetam 500 mg twice a day and tolerating this medication currently The patient has elevated liver enzymes, CK, and creatinine. These could elevate post seizure but trauma (playing football) factors and as well. Recommendations: 1. Continue levetiracetam 500 mg twice a day 2. Limit work hours to midnight each evening, so he does not get overly sleep deprived. He would need a written statement regarding this (7PM to midnight maximum) 3. Avoid stimulants and alcohol on levetiracetam, and seizures. 4. Follow-up with neurology in 2 to 3 weeks (neurology [place] or Dr. Guillory) after discharge Overall, I spent a total of 50 minutes with this case including review of records, review of MRI films, direct evaluation of the patient, report generation, and discussion of the case with the patient and RN at bedside, and Dr. Arana including differential diagnosis and treatment options. Admission and Anticipated Discharge Date Admission Date: March 06, 2025 Subjective Patient has no complaints of pain, headache, dizziness, vision issues, confusion, weakness, or numbness. He has had no further seizures since admission. Nursing reports no additional issues. Blood pressure is 108/54 with a pulse of 58 and regular. He is afebrile. MRI of the brain with and without contrast was unremarkable/normal. I reviewed these films. EEG showed some very mild right hemispheric slowing with no other focal abnormalities and no potentially epileptogenic discharges seen. See report. The patient did have elevated CK, liver enzyme, and creatinine on admission. The patient was playing football in the evening of March 05 when this seizure event happened. Apparently, the patient had febrile seizures as an , a seizure event in middle school, and a seizure event approximately 1 year ago. He was never on anticonvulsant medication. 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 Results & Data Vital Signs (Past 12 Hours) Vital Signs Temp Pulse Pulse Resp BP Pulse Ox Pulse Ox 03/07/25 06:00 58 L 03/07/25 04:50 98 03/07/25 04:23 36.6 C 61 16 108/54 L 100 03/06/25 23:11 98 03/06/25 22:48 53 L 03/06/25 22:44 36.6 C 56 L 16 111/67 98 03/06/25 20:24 36.6 C 57 L 16 125/64 97 O2 Del Method O2 Del Method 03/07/25 06:00 03/07/25 04:50 Room Air 03/07/25 04:23 Room Air 03/06/25 23:11 Room Air 03/06/25 22:48 03/06/25 22:44 Room Air 03/06/25 20:24 Room Air Exam (Neuro) Physical Exam: He is awake and alert. Speech is without aphasia or dysarthria. Mood is normal and affect is appropriate. Thought processes are intact with good long and short-term memory to conversation Extraocular eye muscles are intact without nystagmus. There is no facial droop. Tongue is midline. No abnormal involuntary movements were noted. Coordination was normal in the arms without tremor or ataxia. Strength is 5/5 diffusely in all major muscle groups in the arms and leg both proximally and distally. PG Care Time/CCT Total # of Minutes Spent Total Time Spent with Patient: Total time spent is greater than 50% in coordination of care (as documented) at patient's floor/unit and/or counseling patient: Coding Level of Care Code 06009 SUB INP/OBS CARE 3/50MIN Diagnoses Seizure R56.9 EVER (acute kidney injury) N17.9 Time Spent (min) 50
[2025-03-07 08:22] VITALS: PULSE 75; RESP 19; TEMP 97.3
[2025-03-07 09:09] LABS: Alanine Aminotransferase 83.0 U/L (7-52); Albumin Globulin Ratio 1.3 (0.9-2); Albumin Level 4.2 gm/dl (3.4-5.0); Alkaline Phosphatase 98.0 U/L (34-104); Anion Gap 5.0 (3-11); Bilirubin,Total 0.6 mg/dl (0.2-1.0); Blood Urea Nitrogen 12.0 mg/dl (6-23); Calcium 9.4 mg/dl (8.6-10.3); Carbon Dioxide 28.0 mmol/L (21-32); Chloride 105.0 mmol/L (98-107); Creatinine Clr Calc Pharmacy 92.0 ml/min; Globulin 3.3 gm/dl (2.5-4.0); Glucose 113.0 mg/dl (70-99(Fasting)); Potassium 3.9 mmol/L (3.5-5.1); Sodium 138.0 mmol/L (136-145); Total Protein 7.5 gm/dl (6.0-8.3)
--- NOTE | 2025-03-07 09:40 | Discharge Summary ---
Discharge Summary Date of Service March 07, 2025 Principal Dx & Hospital Course #1 = Principal Diagnosis (1) Seizure: (2) EVER (acute kidney injury): (3) Metabolic acidosis: Plan 24-year-old male PMHx seizure in the past who presents now for a witnessed seizure the night of arrival occurred at football practice. His workup reveals leukocytosis with overall stable H/H. CMP is with abnormalities to include Na 135, Cl 97, CO2 9, AG 29, Cr 1.81, and elevated liver enzymes (AST 78, ALT 91, alk phos 143). CK is also increased at 1140. Neurology was consulted. Admission for further evaluation of seizure as well as to correct electrolyte abnormalities. #seizure Had a seizure a year ago under similar circumstances (football practice) and one in middle school. Hx concussion. Hx febrile seizures as infant His job involves mostly evening shifts with some overnight shifts -brain MRI normal -EEG with some slowing consistent with postictal period, but no seizurelike activity -started keppra 500 mg po bid -follow up with neurology Dr. Guillory in 2-3 weeks -discussed seizure precautions with Dru and his parents including no driving 6 months per state law #EVER, metabolic acidosis, elevated LFTs, elevated CK -caused by seizure -treated with IV bicarbonate drip. Resolved -mild AST/ALT increase improved, expect to resolve #L shoulder pain -xray negative for fracture/dislocation -exam consistent with some rotator cuff strain but had no weakness -if not improving in few weeks, further evaluation consider referral to sports medicine -follow up with [facility] Notes For Next Care Provider Medication Changes From Visit started keppra 500 mg bid Admission HPI Per Admitting Provider 24-year-old male PMHx 1 seizure in the past who presents now for a witnessed seizure the night of arrival. 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 Patient has not been on antiepileptics. He reports that day of arrival, he was at football practice and had just run 20 routes when he remembers going to grab a drink of water and then he does not remember anything after this. He apparently had a witnessed 30 to 40-second full body seizure, landing on his left side and face down. Friends report that he was foaming at the mouth. He remembers earlier events throughout the day such as forgetting his keys and need to go to his classes. He was not feeling ill otherwise. No significant head trauma the patient is aware of. Specifically denies illicit drug use, and stating that his last alcoholic beverage was approximately 2 weeks ago. Admits to taking 2 Advil earlier the day of arrival. States that his L shoulder is slightly tender and feels stoved, but otherwise without complaints. Patient is aware of where he is at and the date. Denying chest pain, SOB, palpitations, abdominal pain, N/V/D/C, numbness/tingling, fever/chills, URI symptoms, LUTS, weakness, or presyncope. ED evaluation reveals CBC with leukocytosis 18.45, H/H 16.2/52.2; CMP Na 135, Cl 97, CO2 9, AG 29, Cr 1.81, ratio 9.4, glucose 147, AST 78, ALT 91, alk phos 143; CK 1140; protein 9.2, globulin 4.3; UA negative for infection; CXR WNL; Head CT pending official read; face CT pending official read.; Provided with 2L NSS, levetiracetam 1g IV, and acetaminophen 1g IV in ED. Please see Dr. Damon's attestation for adjustments/additions to treatment plan. Discharge Exam Last 24h vitals reviewed GEN: no acute distress, up and walking around the room HEENT: pupils equal, sclerae anicteric, moist MM. Minor laceration/abrasion left lateral brow healing well RESP: normal WOB, CTAB CV: reg no mrg ABD: soft/nt/nd +BT : no armas SKIN: warm and dry, no generalized rashes L shoulder exam - soreness on external rotation with strength intact. Has full ROM including overhead. No deformity NEURO: AOx person, place, and situation. Face symmetric, speech normal, moves 4 ext spontaneously and equally Discharge Plan Discharge Items Patient Disposition: Home - Self-Care Reason For Visit: SEIZURE Discharge Diagnosis: seizure Condition on Discharge: Good Activity: Per Instructions section Non-emergency contact: Primary Care Provider and Neurologist Call non-emergency contact if: you have any medication questions Follow-up/Referrals: Arnie Guillory MD [Physician] - (Neuro office aware. They will call pt to schedule) [facility] [Primary Care Provider] - Diet: Regular Addtl Attending Provider Instructions: you were treated and evaluated for seizure because you have history of seizures in the past including 1 year ago the consulting neurologist says you will benefit from treatment with an antiepileptic medicine called Keppra Keppra has relatively fewer side effects than most other antiseizure medications, however it can cause some sedation, potentially mood changes and low blood counts which is rare please follow-up with the neurologist in 2 to 3 weeks in the office there are some special precautions to take because you have had seizure. Avoid sleep deprivation, avoid use of stimulants especially around time of exams and other emotional stressors, avoid alcohol. By state law you are not permitted to drive until you are 6 months seizure-free. It was a pleasure taking care of you in the hospital, Aurora Arana MD Pending Studies at Discharge: No Stand-Alone Forms: My [facility], Work/School Release, Smoking Cessation Medications and DC Order Prescriptions: New levetiracetam [Keppra] 500 mg tablet 500 mg PO BID Qty: 60 1RF Discharge Orders: Discharge Order (Routine); Ordered 03/07/25 Ordered By: Aurora Boyd/Other Patient Handouts: Levetiracetam Oral Tablet, ED Seizure, Recurrent (Adult) Admission Data Admit Date/Time: 03/06/25 02:38 Attending Provider: Aurora Arana Admit Provider: Aubrey Damon Primary Care Provider: [facility] Other Providers: Augustine Raymundo; Aubrey Damon Other Interventions: Discharge Summary Assessment (RN) Last Done: 03/07/25 11:46 Hospital Stay Data Consultations 03/06/25 01:33 Consult Neurology Routine 03/06/25 02:10 ED Decision to Admit Stat Diagnostic Imagining Performed 03/05/25 23:11 CT face [CT facial bones wo con] Stat CT head/brain wo con Stat 03/06/25 02:29 CT abd pelvis wo con Stat CT cervical spine wo con Stat CT chest diagnostic wo con Stat 03/06/25 08:00 MRI Brain [MR brain seizure wo/w con] Routine Pending Results Patient Have Any Pending Studies at Discharge: No Discharge Instructions Given to Patient (Per Discharging Provider) you were treated and evaluated for seizure because you have history of seizures in the past including 1 year ago the consulting neurologist says you will benefit from treatment with an antiepileptic medicine called Keppra Keppra has relatively fewer side effects than most other antiseizure medications, however it can cause some sedation, potentially mood changes and low blood counts which is rare please follow-up with the neurologist in 2 to 3 weeks in the office there are some special precautions to take because you have had seizure. Avoid sleep deprivation, avoid use of stimulants especially around time of exams and other emotional stressors, avoid alcohol. By state law you are not permitted to drive until you are 6 months seizure-free. It was a pleasure taking care of you in the hospital, Aurora Arana MD Total Time Total Time Spent Total Time Spent (In Minutes): I personally spent: 40 minutes today on clinical care activities including: reviewing chart notes and vital signs discussion with consultant teacher(s) neurologist examining and counseling the patient counseling the patient's family writing orders writing prescriptions, discharge instructions documentation Coding Level of Care Code 98348 INP/OBS DISCH >30 MIN Diagnoses Seizure R56.9 EVER (acute kidney injury) N17.9 Metabolic acidosis E87.20
[2025-03-07 10:12] VITALS: BP 105/60
--- NOTE | 2025-03-07 12:38 | XCELERA ---
[id number]
--- NOTE | 2025-03-08 08:34 | Electrocardiogram Report ---
Test Reason : Blood Pressure : */* mmHG Vent. Rate : 99 BPM Atrial Rate : 99 BPM P-R Int : 190 ms QRS Dur : 96 ms QT Int : 346 ms P-R-T Axes : 81 93 28 degrees QTcB Int : 444 ms Normal sinus rhythm Rightward axis Nonspecific T wave abnormality Abnormal ECG No previous ECGs available Confirmed by Antony Ball ([id number]) on 03/08/2025 8:34:14 AM Referred By: REFERRED SELF Confirmed By: Antony Ball
== END 2025-03-07 11:56 | disposition home or self-care (01) | DRG 101 ==
LOC: EDBD → ED 22:52 → 1E 03-06 02:38 → SUATTDRO 03-06 02:38 → INTOOBSV 03-06 02:38 → MERGE 03-06 02:38 → 2E 03-06 04:00 → 2S 03-06 06:37